=== PATIENT | male | born 1945 | race Caucasian/White ===

== ENCOUNTER → 2018-04-23 | Outpatient (CLI) | payer OTHER ==
[~2018-04-23] MED LIST: ADVIN25/60 INH; ASPI81TA28 PO; ATOR-24 PO; COLE3.75 PO; CZR50 PO; FINA5TAB PO; FLM4 PO; METO50TA16 PO
[2018-04-23 10:20] LABS: BASO % 0.9 %; BASO ABS # 0.06 K/uL (0-0.2); EOS % 4.4 %; EOS ABS # 0.29 K/uL (0-0.5); HEMATOCRIT 43.3 % (42-52); HEMOGLOBIN 14.4 g/dL (14.0-18.0); IG# 0.01 K/uL (0.00-0.02); LYMPH % 21.9 %; LYMPH ABS # 1.43 K/uL (1.2-3.4); MEAN CELL VOLUME 92.5 fL (80-100); MEAN CORPUSCULAR HEMOGLOBIN 30.8 pg (25-34); MEAN CORPUSCULAR HGB CONC 33.3 g/dl (32-36); MEAN PLATELET VOLUME 10.7 fL (7.4-10.4); MONO % 7.7 %; NEUT % 64.9 %; NEUT ABS # 4.24 K/uL (1.4-6.5); PLATELET COUNT 243 K/uL (130-400); RED CELL DISTRIBUTION WIDTH SD 43.3 fL (36.4-46.3); WHITE BLOOD COUNT 6.53 K/uL (4.8-10.8)
[2018-04-23 10:31] LABS: BLOOD UREA NITROGEN 17 mg/dl (7-18); CALCIUM 8.7 mg/dl (8.5-10.1); CARBON DIOXIDE 24 mmol/L (21-32); CREATININE 1.36 mg/dl (0.60-1.40); GLUCOSE 148 mg/dl (70-99); POTASSIUM 4.6 mmol/L (3.5-5.1); SODIUM 140 mmol/L (136-145)
== END | disposition home or self-care (01) ==
LOC: C.LAB 09:15
PROVIDERS: ATTEND Urology
DX: Z01.812 Encounter for preprocedural laboratory examination (principal)

== ENCOUNTER → 2018-04-29 | Outpatient (CLI) | payer OTHER ==
[~2018-04-29] MED LIST changes: +RIVA1TAB4 PO; +antibiotic PO
== END | disposition home or self-care (01) ==
LOC: C.LAB 14:35
PROVIDERS: ATTEND Urology
DX: N40.1 Benign prostatic hyperplasia with lower urinary tract symptoms (principal); R31.0 Gross hematuria; C67.9 Malignant neoplasm of bladder, unspecified

== ENCOUNTER 2018-05-05 06:42 | Day surgery (SDC) | payer OTHER ==
[2018-04-20 09:18] VITALS: BMI 36.0
[2018-04-23 09:29] VITALS: BMI 36.0
--- NOTE | 2018-04-23 09:45 | PAT Medication Instructions ---
Service Date Apr 23, 2018. Current Home Medication List Aspirin (Aspirin Ec), 81 MG PO QAM Atorvastatin (Lipitor), 40 MG PO QPM Colesevelam Hcl (Welchol), 1 PKT PO QAM Finasteride (Proscar), 5 MG PO QPM Fluticasone Prop/Salmeterol (Advair Diskus 250/50 60 Dose), 1 PUFF INH BID Losartan Potassium (Losartan Potassium), 1 TAB PO QAM Metoprolol Tartrate (Lopressor) (Lopressor), 50 MG PO QAM Tamsulosin HCl (Tamsulosin HCl), 1 TAB PO QPM Medication Instructions For Your Scheduled Surgery - Hold the following medications the morning of surgery: Colesevelam Hcl (Welchol), 1 PKT PO QAM Losartan Potassium (Losartan Potassium), 1 TAB PO QAM - Take the following medications the morning of surgery with a sip of water: Aspirin (Aspirin Ec), 81 MG PO QAM (OK per surgeon) Fluticasone Prop/Salmeterol (Advair Diskus 250/50 60 Dose), 1 PUFF INH BID Metoprolol Tartrate (Lopressor) (Lopressor), 50 MG PO QAM - Take the following medications as scheduled the night before surgery: Atorvastatin (Lipitor), 40 MG PO QPM Finasteride (Proscar), 5 MG PO QPM Fluticasone Prop/Salmeterol (Advair Diskus 250/50 60 Dose), 1 PUFF INH BID Tamsulosin HCl (Tamsulosin HCl), 1 TAB PO QPM If you have any questions please call us at [phone] or [phone] or [phone]
[~2018-05-05] VITALS: Ht 165.1 cm; Wt 98.6 kg
[~2018-05-05 06:42] MED LIST changes: +LACTATED RINGER'S 1000ML 1,000 ML IV SCH; -RIVA1TAB4 PO; -antibiotic PO
--- NOTE | 2018-05-05 07:13 | History & Physical Bridge Note ---
H&P Re-Evaluation Bridge Note: I have examined the patient, reviewed the History & Physical and in the interval since the performance of the History & Physical I have noted the following changes of clinical significance: No changes noted
[2018-05-05] MEDS ORDERED: antibiotic PO ×2 (07:26)
[2018-05-05 07:27] VITALS: BP 131/70; PULSE 66; TEMP 36.9; O2SAT 93; Ht 165.1 cm; Wt 98.6 kg
[2018-05-05] MEDS ORDERED: RIVA1TAB4 PO ×2 (07:41)
[2018-05-05] MEDS ORDERED: PROPOFOL IV EMULSION 10 MG/ML 20 ML VIAL ONE (07:42)
[2018-05-05] MEDS ORDERED: FENTANYL CITRATE INJ 50 MCG/1 ML 2 ML VIAL ONE ×2 (07:42→09:55)
[2018-05-05] MEDS ORDERED: LIDOCAINE HCL 2% 2 ML VIAL (20MG/ML) ONE (07:42)
[2018-05-05] MEDS ORDERED: ONDANSETRON INJ 2 MG/ML 2 ML VIAL ONE (07:42)
[2018-05-05] MEDS ORDERED: Cysto-Conray II 17.2% 250ML BOTTLE ONE (08:25)
[2018-05-05] MEDS ORDERED: MEPERIDINE HCL 25 MG/ML CARP IV PRN (08:30)
[2018-05-05] MEDS ORDERED: EpHEDrine SULFATE INJ 50 MG/ML AMP IV PRN (08:30)
[2018-05-05] MEDS ORDERED: ATROPINE SULFATE 0.1 MG/ML 5ML SYR IV PRN (08:30)
[2018-05-05] MEDS ORDERED: ONDANSETRON INJ 2 MG/ML 2 ML VIAL IV PRN (08:30)
[2018-05-05] MEDS ORDERED: FENTANYL CITRATE INJ 50 MCG/1 ML 2 ML VIAL IV PRN (08:30)
[2018-05-05] MEDS ORDERED: HYDROmorphone INJ 1 MG/ML SYR IV PRN (08:30)
[2018-05-05] MEDS ORDERED: LABETALOL HCL IV 5 MG/ML 20ML IV PRN (08:30)
[2018-05-05] MEDS: CIPROFLOXACIN / D5W 400 MG IV SCH ×2 (08:50→11:18)
[2018-05-05] MEDS ORDERED: MITOMYCIN FOR INJ 40 MG in SYRINGE 40 ML INSTIL SCH (09:00)
[2018-05-05] MEDS ORDERED: PHENYLEPHRINE 100MCG/ML 5ML SYR ONE (09:32)
--- NOTE | 2018-05-05 10:15 | [facility] Post Operative Brief Note ---
Immediate Operative Summary Operative Date May 05, 2018. Pre-Operative Diagnosis malignant neoplasm of bladder Post-Operative Diagnosis same as preop Procedure(s) Performed Cystoscopy, Small Transurethral Resection of Bladder Tumor With Multiple Cup Biopsies of the Bladder, Mitomycin C, and Right Retrograde Surgeon Dr. Jair Campbell Eyeglass Frame Truer Surgeon(s) None Estimated Blood Loss 20ml Findings Consistent with Post-Op Diagnosis Specimens Permanent Specimen: A.) Tumor Next to Right Ureteral Orifice B.) Biopsy Right Lateral Wall Bladder C.) Biopsy Right Bladder Neck D.) Posterior Wall Bladder Drains 18 pink with mitomycin Anesthesia Type General
--- NOTE | 2018-05-05 10:20 | Discharge Instructions ---
Discharge Instructions Date of Service May 05, 2018. Visit Reason for Visit: Malignant Neoplasm Of Bladder Discharge Discharge Diagnosis / Problem: post op small turbt and r retrograde Discharge Goals Goal(s): Increase independence, Improve disease control, Diagnostic testing Activity Recommendations Activity Limitations: per Instructions/Follow-up section (restart xaralto in 72 hours if no blood seen for 24 hours) Exercise/Sports Limitations: as tolerated Driving or Machine Use: resume 1 day after discharge Anesthesia . Post Anesthesia Instructions: If you have had General Anesthesia or IV Sedation: * Do not drive today. * Resume driving when surgeon permits. * Do not make important decisions or sign legal documents today. * Call surgeon for: 1. Temperature elevations greater than 101 degrees F. 2. Uncontrollable pain. 3. Excessive bleeding. 4. Persistent nausea and vomiting. 5. Medication intolerance (nausea, vomiting or rash). * For nausea and vomiting use only clear liquids such as: tea, soda, bouillon until nausea subsides, then gradually increase diet as tolerated. * If you have any concerns or questions, call your surgeon's office. If physician is unavailable and it is an emergency, call 911 or go to the nearest emergency room. . Diet Recommendations Recommended Home Diet: resume previous diet Procedures Procedures Performed: Cystoscopy, Small Transurethral Resection of Bladder Tumor With Multiple Cup Biopsies of the Bladder, Mitomycin C, and Right Retrograde Pending Studies Studies pending at discharge: no Medical Emergencies . Who to Call and When: Medical Emergencies: If at any time you feel your situation is an emergency, please call 911 immediately. . Non-Emergent Contact Non-Emergency issues call your: Urologist Call Non-Emergent contact if: temperature is above 100.5, your pain is worsening, you have any medication questions . . "Provider Documentation" section prepared by Jair Campbell. .
--- NOTE | 2018-05-05 10:37 | DIAGNOSTIC IMAGING REPORT ---
RETROGRADE INCLUDES KUB CLINICAL HISTORY: Right retrograde exam. COMPARISON STUDY: CT of the abdomen and pelvis April 14, 2018. Fluoroscopy time: 25 seconds. FINDINGS: 8 fluoroscopic images from right retrograde exam were submitted for interpretation. There is no right hydronephrosis or hydroureter. No right-sided upper tract filling defect is noted. IMPRESSION: Fluoroscopic images from right retrograde exam. Electronically signed by: Uli Zhang M.D. 05/05/2018 10:35 AM Dictated Date/Time: 05/05/2018 10:30 AM
[2018-05-05 10:55] VITALS: BP 141/87; PULSE 83; TEMP 36.4; O2SAT 97
--- NOTE | 2018-05-05 11:11 | Anesthesiology Progress Note ---
Anesthesia Post Op Note Date & Time May 05, 2018 at 11:10 Vital Signs Pain Intensity: 0 Vital Signs Past 12 Hours Date Time Temp Pulse Resp B/P (MAP) Pulse Ox O2 Delivery O2 Flow Rate FiO2 05/05/18 10:43 36.6 97 Room Air 05/05/18 10:43 88 17 05/05/18 10:43 87 17 97 05/05/18 10:41 142/89 05/05/18 10:38 89 16 05/05/18 10:38 89 16 98 05/05/18 10:37 89 14 05/05/18 10:37 89 14 96 05/05/18 10:36 155/92 05/05/18 10:32 91 13 98 05/05/18 10:32 91 13 05/05/18 10:31 157/97 05/05/18 10:30 91 16 05/05/18 10:30 92 16 92 05/05/18 10:27 162/98 05/05/18 10:25 93 13 05/05/18 10:25 93 13 93 05/05/18 10:21 153/97 05/05/18 10:20 94 14 05/05/18 10:20 94 14 92 05/05/18 10:16 148/96 05/05/18 10:15 95 16 05/05/18 10:15 95 16 95 05/05/18 10:11 158/100 05/05/18 10:10 37.2 97 16 158/100 96 Oxymask 10 05/05/18 10:10 99 05/05/18 10:10 99 96 05/05/18 07:27 36.9 66 20 131/70 (90) 93 Room Air Notes Mental Status: alert / awake / arousable, participated in evaluation Pt Amnestic to Procedure: Yes Nausea / Vomiting: adequately controlled Pain: adequately controlled Airway Patency, RR, SpO2: stable & adequate BP & HR: stable & adequate Hydration State: stable & adequate Anesthetic Complications: no major complications apparent
[2018-05-05 11:20] VITALS: BP 144/89; PULSE 72; O2SAT 98
[2018-05-05 11:55] VITALS: BP 130/92; PULSE 63; TEMP 36.3; O2SAT 97
[2018-05-05 12:55] VITALS: BP 158/95; PULSE 60; TEMP 36.3; O2SAT 97
--- NOTE | 2018-05-05 13:44 | OPERATIVE REPORT ---
DATE OF OPERATION: 05/05/2018 PROCEDURE PERFORMED: Cystoscopy and small TURBT, and right retrograde. HISTORY OF PRESENTATION: The patient is a 72-year-old male with a history of gross hematuria who on cystoscopy in the office had multiple small bladder tumors mostly on the right side of the bladder and some right around the ureteral orifice which may be concerned that there could be something in the right ureter. For this reason, consented him to do the cysto, possible stent placement and retrograde. DESCRIPTION OF THE PROCEDURE: The patient was taken to the operating room where general anesthesia was administered. He had Venodyne stockings placed and was given preoperative antibiotics. He was placed in dorsal lithotomy position and prepped and draped in usual sterile fashion. A 21-Divehi cystoscope was passed per urethra. The patient had a moderately obstructing prostate, but no urethral strictures were noted. Once inside the bladder, the bladder was examined with the 30 and 70-degree lens. There were some fine mostly small papillary tumors that were seen around the right ureteral orifice and anterior and lateral and posterior to the right ureter. There was also on the posterior wall a small cellule with papillary changes. These areas were biopsied and fulgurated widely. The area around the ureteral orifice was fulgurated very carefully and retrograde was performed prior to this fulguration. No definite obstruction or filling defects were seen. At the end of the procedure, there is no evidence of active bleeding. The patient had a Carr catheter placed and mitomycin was given and he was transferred to the recovery room in stable condition. I attest to the content of the Intraoperative Record and any orders documented therein. Any exception s are noted below.
== END 2018-05-05 13:14 | disposition home or self-care (01) ==
LOC: C.ACU 06:42
PROVIDERS: ATTEND Urology
DX: C67.9 Malignant neoplasm of bladder, unspecified (principal); N30.80 Other cystitis without hematuria; I25.10 Atherosclerotic heart disease of native coronary artery without angina pectoris; J45.909 Unspecified asthma, uncomplicated; I10 Essential (primary) hypertension; I48.91 Unspecified atrial fibrillation; M19.90 Unspecified osteoarthritis, unspecified site; K44.9 Diaphragmatic hernia without obstruction or gangrene; N40.1 Benign prostatic hyperplasia with lower urinary tract symptoms; N13.8 Other obstructive and reflux uropathy; E66.9 Obesity, unspecified; Z68.36 Body mass index [BMI] 36.0-36.9, adult; Z87.442 Personal history of urinary calculi; Z96.659 Presence of unspecified artificial knee joint

== ENCOUNTER 2024-11-01 10:05 | Inpatient (IN) ==
--- NOTE | 2024-11-01 10:16 | Emergency Department Note ---
Impression & Plan Fracture of proximal end of right femur, Fall from standing ED Provider Note HISTORY OF PRESENT ILLNESS: Patient is a 79-year-old male presenting with right hip pain after a fall. Patient was taking his trash out to the bottom of his driveway when he slipped on a patch of ice and fell, landing on his right hip. Reports immediate pain and deformity to the right hip and was unable to get up on his own. His neighbor saw him and called for help. Patient denies any chest pain, shortness of breath or lightheadedness prior to his fall. He reports he just slipped on the ice. He denies striking his head or loss of consciousness. He is on Xarelto daily - last dose was yesterday evening. Unknown tetanus. He is currently complaining of 10 out of 10 pain in his right hip. He was given 100 mcg IV fentanyl prehospital with EMS. ROS: as above PHYSICAL EXAM: Vitals: See nursing chart. Constitutional: GCS 15. HENT: Head: No external signs of trauma. Mouth/Throat: Midface stable. No malocclusion. Eyes: EOMI. Pupils are 2 mm, round and reactive bilaterally. Nose: No nasal septal hematoma. No gross deformity. Neck: No midline C-spine tenderness. No step-offs. Cardiovascular: Irregular rhythm. Pulses present in all 4 extremities. Pulmonary/Chest: BS equal bilaterally. No tenderness or ecchymosis. Abdomen: No tenderness or ecchymosis. Musculoskeletal: Pelvis: No instability. Patient does have tenderness to palpation over the proximal lateral right femur. Unable to internally or externally rotate the femur without pain. Back: No midline tenderness. No step-offs. Extremities: No gross deformities. TTP. Skin: No laceration. Abrasion to right elbow Neuro: No focal neurological deficits. GCS as above. Psych: Normal mood and affect. MDM: - Vitals signs showed hypertension and tachycardia. ABCs intact. - History obtained via patient. History as above. - Chronic conditions affecting care: HTN; HLD; bladder cancer; Afib - Differential diagnoses include, but are not limited to: intracranial hemorrhage; pelvic fracture; femur fracture; femur dislocation; contusion - Order placed for continuous cardiac monitoring. At this time, monitor showed rate of 87 bpm with irregular rhythm, per my interpretation. - External medical records reviewed. - EKG interpreted by myself showed atrial fibrillation. Rate 91 bpm. QT 400. No acute ischemic changes. Noted have an incomplete right bundle branch block. - Laboratory workup interpreted by myself showed normal WBC; normal electrolytes; elevated creatinine (Cr 1.54 - last Cr in our system in 2018 was 1.36); normal troponin; normal lipase - CXR negative for pneumonia or pneumothorax, per my interpretation - Xray pelvis with R hip showed proximal right femur fracture, per my interpretation. - UA negative for infection - Type and screen ordered - Patient initially given 0.5 mg IV dilaudid on arrival. After being repositioned for multiple imaging studies, the patient was complaining of worsening pain. Given additional 0.5 mg IV Dilaudid and 1 g IV Tylenol. - CT head wo contrast negative for acute pathology - CT cervical spine wo contrast negative for acute injury - Attempted to reach out to orthopedist rehabilitation aide, Dr. Bernstein, at 10:48 AM. However, he apparently is in the operating room and did not answer the [facility] message. The secretary board of commissioners reach out to orthopedics multiple times, as need to confirm surgical planning before being admitted to hospitalist service. - Discussed case with hospitalist, Dr. Ruiz, at 12:48. He was willing to accept the patient to his service, but wanted confirmation from orthopedics that they would operate on this prior to admission orders being placed. - Dr. Bernstein finally returned page at 1300 and reports that patient should be admitted to hospitalist service and orthopedics will be on for consult service. - Discussion was had with continuous pillowcase cutter about patient's case and need for admission - Patient admitted to [facility] hospitalist service for further evaluation and management. 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 History of bladder cancer Medical History (Updated 11/01/24 @ 12:54 by Abimbola De La Fuente MD) Calculus of kidney and ureter Gross hematuria Hydrocele Nocturia UTI (urinary tract infection) Surgical History (Updated 06/27/20 @ 13:16 by Jasmin House RN) H/O vasectomy H/O shoulder surgery History of knee replacement Hx of colonoscopy H/O hernia repair H/O heart surgery Family History (Updated 06/27/20 @ 13:17 by Jasmin House RN) Father Heart disease Mother Diabetes Hypertension Skin cancer Social History (Updated 12/25/20 @ 12:06 by Igor Marquez) Smoking Status: Never smoker Hx Alcohol Use: Yes marital status: current occupational status: retired Feels Safe at Home: Yes Allergies Allergies Allergy/AdvReac Type Severity Reaction Status Date / Time No Known Drug Allergies Allergy Unknown . Verified 07/12/24 10:18 Home Meds Home Medications Medication Instructions Recorded Confirmed tamsulosin 0.4 mg capsule 0.4 mg PO DAILY 05/24/19 07/12/24 Xarelto 11/01/24 amiodarone 11/01/24 atorvastatin 11/01/24 colesevelam 3.75 gram oral powder 11/01/24 packet (WelChol) fluticasone 250 mcg-salmeterol 50 inhalation 11/01/24 mcg/dose blistr powdr for inhalation (Advair Diskus) metoprolol tartrate 11/01/24 Previous Rx's Medication Instructions Recorded finasteride 5 mg tablet 5 mg PO DAILY #90 tabs 10/11/24 Results & Data (ED) Vital Signs Vital Signs - 24 hr 11/01/24 10:08 11/01/24 10:09 11/01/24 10:09 Temperature 36.7 C 36.7 C Temperature Source Oral Pulse Rate 104 H 96 H Pulse Rate [Apical] 103 H Respiratory Rate 19 16 16 Respiratory Effort / Characteristics Non-Labored Spontaneous Non-Labored Spontaneous Respiratory Depth Normal Respiratory Pattern Blood Pressure 142/93 H 142/93 H Blood Pressure [Right Arm] Blood Pressure Mean 109 Blood Pressure Mean [Right Arm] Blood Pressure Position Lying Pulse Oximetry 96 94 96 Oxygen Delivery Method Room Air Nasal Cannula Nasal Cannula Oxygen Flow Rate 2 2 Fraction of Inspired Oxygen 21 Sepsis Recent Fever Within 48 Hours No Sepsis New/Unexplained Change in Mental Status N/A Sepsis Action Taken by Nursing No Action Required 11/01/24 10:14 11/01/24 10:21 11/01/24 10:45 Temperature Temperature Source Pulse Rate 103 H 84 94 H Pulse Rate [Apical] Respiratory Rate 18 20 Respiratory Effort / Characteristics Respiratory Depth Respiratory Pattern Blood Pressure 142/93 H 130/94 Blood Pressure [Right Arm] Blood Pressure Mean 109 106 Blood Pressure Mean [Right Arm] Blood Pressure Position Pulse Oximetry 98 93 Oxygen Delivery Method Room Air Room Air Oxygen Flow Rate Fraction of Inspired Oxygen Sepsis Recent Fever Within 48 Hours Sepsis New/Unexplained Change in Mental Status Sepsis Action Taken by Nursing 11/01/24 11:02 11/01/24 11:04 11/01/24 11:32 Temperature Temperature Source Pulse Rate Pulse Rate [Apical] 97 H Respiratory Rate 24 Respiratory Effort / Characteristics Non-Labored Spontaneous Respiratory Depth Normal Respiratory Pattern Regular Blood Pressure 135/92 Blood Pressure [Right Arm] 100/80 Blood Pressure Mean 97 Blood Pressure Mean [Right Arm] 86 Blood Pressure Position Pulse Oximetry 97 97 Oxygen Delivery Method Nasal Cannula Nasal Cannula Oxygen Flow Rate 2 2 Fraction of Inspired Oxygen Sepsis Recent Fever Within 48 Hours Sepsis New/Unexplained Change in Mental Status Sepsis Action Taken by Nursing 11/01/24 11:33 11/01/24 11:39 Temperature Temperature Source Pulse Rate 87 Pulse Rate [Apical] 88 Respiratory Rate 16 16 Respiratory Effort / Characteristics Non-Labored Spontaneous Respiratory Depth Normal Respiratory Pattern Regular Blood Pressure Blood Pressure [Right Arm] 135/92 Blood Pressure Mean Blood Pressure Mean [Right Arm] 106 Blood Pressure Position Pulse Oximetry 95 99 Oxygen Delivery Method Nasal Cannula Nasal Cannula Oxygen Flow Rate 2 2 Fraction of Inspired Oxygen Sepsis Recent Fever Within 48 Hours Sepsis New/Unexplained Change in Mental Status Sepsis Action Taken by Nursing Laboratory Data 11/01/24 10:12 11/01/24 10:12 Lab Results 11/01/24 11/01/24 11/01/24 Range/Units 10:12 10:18 12:10 WBC 9.33 (4.8-10.8) K/ul RBC 4.17 L (4.70-6.10) M/uL Hgb 10.8 L (14.0-18.0) g/dl POC Hgb 11.6 L (14.0-18.0) g/dl Hct 34.8 L (42.0-52.0) % POC Hct 34 L (42-52) % MCV 83.5 (80.0-100.0) fL MCH 25.9 (25.0-34.0) pg MCHC 31.0 L (32.0-36.0) g/dL RDW Std Deviation 43.2 (36.4-46.3) fL RDW Coeff of Kelvin 14.3 (11.5-14.5) % Plt Count 335 (130-400) K/uL MPV 9.2 L (9.4-12.4) fL Immature Gran % (Auto) 0.4 % Neut % (Auto) 66.8 % Lymph % (Auto) 17.9 % [place] % (Auto) 11.9 % Eos % (Auto) 2.6 % Baso % (Auto) 0.4 % Neut # (Auto) 6.23 (1.40-6.50) K/uL Lymph # (Auto) 1.67 (1.20-3.40) K/uL [place] # (Auto) 1.11 H (0.11-0.59) K/uL Eos # (Auto) 0.24 (0.00-0.50) K/uL Baso # (Auto) 0.04 (0.00-0.20) K/uL Immature Gran # (Auto) 0.04 (0.01-0.20) K/uL PT 12.4 H (9.0-12.0) Seconds INR 1.2 H (0.9-1.1) APTT 29 (21-31) Seconds PTT Ratio 1.1 POC Sodium 139 (135-144) mmol/L Sodium 138 (136-145) mmol/L POC Potassium 4.8 (3.3-5.0) mmol/L Potassium 4.7 (3.5-5.1) mmol/L POC Chloride 108 (101-112) mmol/L Chloride 108 H (98-107) mmol/L Carbon Dioxide 25 (21-32) mmol/L POC Total CO2 25 (24-31) mmol/L Anion Gap 5 (3-11) POC Anion Gap 12.0 L (16-25) mmol/L POC BUN 23 H (7-18) mg/dl BUN 24 H (6-23) mg/dl Creatinine 1.54 H (0.6-1.4) mg/dl POC Creatinine 1.7 H (0.6-1.3) mg/dl Est Cr Clr Drug Dosing 44.8 ml/min eGFR 45.89 BUN/Creatinine Ratio 15.6 (10-20) Glucose 144 H (70-99(Fasting)) mg/dl POC Glucose (other) 144 H (70-99) mg/dl Calcium 8.4 L (8.6-10.3) mg/dl POC Ioniz Calcium Emile 1.18 (1.12-1.32) mmol/l Total Bilirubin 0.7 (0.2-1.0) mg/dl AST 14 (13-39) U/L ALT 13 (7-52) U/L Alkaline Phosphatase 91 (34-104) U/L Troponin I High Sens 4.8 (0-20) pg/ml Total Protein 7.0 (6.0-8.3) gm/dl Albumin 3.9 (3.4-5.0) gm/dl Globulin 3.1 (2.5-4.0) gm/dl Albumin/Globulin Ratio 1.3 (0.9-2) Lipase 31 (11-82) U/L Urine Color Yellow Urine Appearance Clear (Clear) Urine pH 5.0 (4.5-7.5) Ur Specific Baker 1.015 (1.000-1.030) Urine Protein Negative (Negative) Urine Glucose (UA) Negative (Negative) Urine Ketones Negative (Negative) Urine Blood Negative (Negative) Urine Nitrite Negative (Negative) Urine Bilirubin Negative (Negative) Urine Urobilinogen Negative (Negative) Ur Leukocyte Esterase Negative (Negative) Blood Type AB Positive Antibody Screen NEGATIVE Administered Medications Discontinued Medications Hydromorphone HCl (Hydromorphone Inj 0.5 Mg/0.5 Ml Syr) 0.5 mg IV NOW STA Stop: 11/01/24 10:13 Last Admin: 11/01/24 10:20 Dose: 0.5 mg Documented By: KAITLIN Hydromorphone HCl (Hydromorphone Inj 0.5 Mg/0.5 Ml Syr) 0.5 mg IV NOW STA Stop: 11/01/24 10:50 Last Admin: 11/01/24 11:05 Dose: 0.5 mg Documented By: CHIARA Acetaminophen (irmev) 1,000 mg in 100 mls @ 400 mls/hr IV NOW STA Stop: 11/01/24 11:32 Last Infusion: 11/01/24 12:00 Dose: Infused Documented By: Admin: 11/01/24 11:29 Dose: 400 mls/hr Documented By: NRB Imaging Data Radiologist's Impression: Hip/Pelvis X-Ray 11/01/24 10:12 XR hip RT 2V w pelvis CLINICAL HISTORY: R hip pain s/p fall COMPARISON: None FINDINGS: There is an acute mildly comminuted mildly displaced fracture at the proximal right femur. The main fracture lucency extends from the lesser trochanter inferiorly and laterally. Another portion of the fracture extends superiorly to the greater trochanter. There is one half shaft width medial displacement and mild angulation. IMPRESSION: Acute proximal right femur fracture. ACT 112: Negative or not required by law. Electronically signed by: Giles Caballero M.D. 11/01/2024 10:[address] 11/01/24 10:13 CT OF THE CERVICAL SPINE WITHOUT CONTRAST CLINICAL HISTORY: Trauma COMPARISON STUDY: No previous studies for comparison. TECHNIQUE: Helical axial images of the cervical spine were obtained without IV contrast. Sagittal and coronal reconstructions were viewed. Automated exposure control was utilized for the study. A dose lowering technique was utilized adhering to the principles of ALARA. FINDINGS: This study is mildly compromised by artifact. No cervical spine fractures are identified. There is reversal of the cervical lordosis. There is moderate degenerative disc disease with disc space narrowing and endplate osteophytosis. There is severe multilevel facet arthrosis. There is no prevertebral edema. IMPRESSION: 1. No acute cervical spine fracture or subluxation. Exam mildly compromised by motion artifact. 2. Moderate degenerative disc disease and severe facet arthrosis within the cervical spine. ACT 112: Negative or not required by law. Electronically signed by: Uli Zhang M.D. 11/01/2024 10:57 AM Chest X-Ray 11/01/24 10:13 XR chest 1V portable CLINICAL HISTORY: Trauma COMPARISON STUDY: 06/04/2024 FINDINGS: Stable cardiomegaly with mild pulmonary vascular congestion. Inspiration is shallow. No effusion, consolidation, or pneumothorax. No grossly displaced rib fracture seen. Bilateral shoulder prostheses are stable. IMPRESSION: No acute findings seen. ACT 112: Negative or not required by law. Electronically signed by: Giles Caballero M.D. 11/01/2024 10:[address] 11/01/24 10:13 CT head/brain wo con CLINICAL HISTORY: Trauma. TECHNIQUE: Multiple axial CT images of the head were obtained without contrast. A dose lowering technique was utilized adhering to the principles of ALARA. CT DOSE: 1235 COMPARISON: None FINDINGS: No intracranial hemorrhage seen. No mass effect, midline shift, or hydrocephalus. There is mild chronic small vessel ischemic change. No skull fracture seen. Visualized paranasal sinuses and mastoid air cells are clear. IMPRESSION: No acute findings. ACT 112: Negative or not required by law. The above report was generated using voice recognition software. It may contain grammatical, syntax or spelling errors. Electronically signed by: Giles Caballero M.D. 11/01/2024 10:48 AM Discharge Plan Visit Data Chief Complaint: Trauma ED Provider: Abimbola De La Fuente Discharge Problem: Fracture of proximal end of right femur, Fall from standing Forms Stand Alone Forms: On License Of [facility] Prescriptions Prescriptions: No Action tamsulosin 0.4 mg capsule 0.4 mg PO DAILY finasteride 5 mg tablet 5 mg PO DAILY Qty: 90 1RF fluticasone propion-salmeterol [Advair Diskus] 250-50 mcg/dose Blister With Device INHALATION colesevelam [WelChol] 3.75 gram Powder In Packet Xarelto amiodarone atorvastatin metoprolol tartrate Referrals Referrals: Jimmy Paul MD [Primary Care Provider] -
[2024-11-01] MEDS: HYDROmorphone INJ 0.5 MG/0.5 ML SYR IV STA ×2 (10:20→11:05)
[2024-11-01 10:30] LABS: iSTAT Creatinine 1.7 mg/dl (0.6-1.3); iSTAT Hemoglobin 11.6 g/dl (14.0-18.0); iSTAT Ionized Calcium 1.18 mmol/l (1.12-1.32); iSTAT Potassium 4.8 mmol/L (3.3-5.0)
[2024-11-01 10:45] LABS: Basophils # (auto) 0.04 K/uL (0.00-0.20); Basophils % (auto) 0.4 %; Eosinophils # (auto) 0.24 K/uL (0.00-0.50); Eosinophils % (auto) 2.6 %; Hematocrit (blood only) 34.8 % (42.0-52.0); Hemoglobin 10.8 g/dl (14.0-18.0); Immature Granulocytes # (auto) 0.04 K/uL (0.01-0.20); Immature Granulocytes % (auto) 0.4 %; Lymphocytes # (auto) 1.67 K/uL (1.20-3.40); Lymphocytes % (auto) 17.9 %; Mean Corpuscular Hemoglobin 25.9 pg (25.0-34.0); Mean Corpuscular Volume 83.5 fL (80.0-100.0); Mean Platelet Volume 9.2 fL (9.4-12.4); Monocytes # (auto) 1.11 K/uL (0.11-0.59); Monocytes % (auto) 11.9 %; Neutrophils # (auto) 6.23 K/uL (1.40-6.50); Neutrophils % (auto) 66.8 %; Platelet Count 335 K/uL (130-400); RDW Coefficient of Variation 14.3 % (11.5-14.5); RDW Standard Deviation 43.2 fL (36.4-46.3); Red Blood Count 4.17 M/uL (4.70-6.10); White Blood Count 9.33 K/ul (4.8-10.8)
--- NOTE | 2024-11-01 10:50 | XRay Report ---
XR chest 1V portable CLINICAL HISTORY: Trauma COMPARISON STUDY: 06/04/2024 FINDINGS: Stable cardiomegaly with mild pulmonary vascular congestion. Inspiration is shallow. No eff usion, consolidation, or pneumothorax. No grossly displaced rib fracture seen. Bilateral shoulder pro stheses are stable. IMPRESSION: No acute findings seen. ACT 112: Negative or not required by law. Electronically signed by: Giles Caballero M.D. 11/01/2024 10:49 AM
--- NOTE | 2024-11-01 10:50 | CT Scan Report ---
CT head/brain wo con CLINICAL HISTORY: Trauma. TECHNIQUE: Multiple axial CT images of the head were obtained without contrast. A dose lowering tech nique was utilized adhering to the principles of ALARA. CT DOSE: 1235 COMPARISON: None FINDINGS: No intracranial hemorrhage seen. No mass effect, midline shift, or hydrocephalus. There is mild chronic small vessel ischemic change. No skull fracture seen. Visualized paranasal sinuses and m astoid air cells are clear. IMPRESSION: No acute findings. ACT 112: Negative or not required by law. The above report was generated using voice recognition software. It may contain grammatical, syntax o r spelling errors. Electronically signed by: Giles Caballero M.D. 11/01/2024 10:48 AM
--- NOTE | 2024-11-01 10:52 | XRay Report ---
XR hip RT 2V w pelvis CLINICAL HISTORY: R hip pain s/p fall COMPARISON: None FINDINGS: There is an acute mildly comminuted mildly displaced fracture at the proximal right femur. The main fracture lucency extends from the lesser trochanter inferiorly and laterally. Another porti on of the fracture extends superiorly to the greater trochanter. There is one half shaft width medial displacement and mild angulation. IMPRESSION: Acute proximal right femur fracture. ACT 112: Negative or not required by law. Electronically signed by: Giles Caballero M.D. 11/01/2024 10:51 AM
[2024-11-01 10:55] LABS: Albumin Globulin Ratio 1.3 (0.9-2); Albumin Level 3.9 gm/dl (3.4-5.0); BUN Creatinine Ratio 15.6 (10-20); Bilirubin,Total 0.7 mg/dl (0.2-1.0); Calcium 8.4 mg/dl (8.6-10.3); Creatinine Clr Calc Pharmacy 44.8 ml/min; Globulin 3.1 gm/dl (2.5-4.0); Potassium 4.7 mmol/L (3.5-5.1)
[2024-11-01 10:58] LABS: Troponin I High Sensitivity 4.8 pg/ml (0-20)
--- NOTE | 2024-11-01 10:59 | CT Scan Report ---
CT OF THE CERVICAL SPINE WITHOUT CONTRAST CLINICAL HISTORY: Trauma COMPARISON STUDY: No previous studies for comparison. TECHNIQUE: Helical axial images of the cervical spine were obtained without IV contrast. Sagittal a nd coronal reconstructions were viewed. Automated exposure control was utilized for the study. A do se lowering technique was utilized adhering to the principles of ALARA. FINDINGS: This study is mildly compromised by artifact. No cervical spine fractures are identified. T here is reversal of the cervical lordosis. There is moderate degenerative disc disease with disc spac e narrowing and endplate osteophytosis. There is severe multilevel facet arthrosis. There is no preve rtebral edema. IMPRESSION: 1. No acute cervical spine fracture or subluxation. Exam mildly compromised by motion artifact. 2. Moderate degenerative disc disease and severe facet arthrosis within the cervical spine. ACT 112: Negative or not required by law. Electronically signed by: Uli Zhang M.D. 11/01/2024 10:57 AM
[2024-11-01 11:01] LABS: INR 1.2 (0.9-1.1); Partial Thromboplastin Ratio 1.1; Partial Thromboplastin Time 29 Seconds (21-31); Prothrombin Time 12.4 Seconds (9.0-12.0)
[2024-11-01] MEDS: ACETAMINOPHEN 1,000 MG/100 ML VIAL IV STA (11:29)
[2024-11-01 12:39] LABS: Appearance Urine Clear (Clear); Bilirubin Urine Negative (Negative); Blood Urine Negative (Negative); Color Urine Yellow; Glucose Urine UA Negative (Negative); Ketones Urine Negative (Negative); Leukocyte Esterase Urine Negative (Negative); Nitrite Urine Negative (Negative); Protein Urine Negative (Negative); Specific Gravity Urine 1.015 (1.000-1.030); Urobilinogen Urine Negative (Negative)
--- NOTE | 2024-11-01 13:32 | History & Physical Report ---
Date of Service November 01, 2024 Assessment & Plan (1) Right femoral fracture: (2) Atrial fibrillation: (3) Anemia: Plan Jair is a 79-year-old male with PMH of bladder cancer, CKD stage III, BPH, HTN, hypercholesteremia, arthritis, and nephrolithiasis. Patient presented via EMS on 11/01 after slipping on snow at home while taking out the garbage. Patient reports that his driveway steep, and he was taking out the garbage this morning, when he slipped and his legs went out from under him. He believes he did hit his head, and landed on his right side. Patient takes Xarelto at suppertime for his atrial fibrillation, and took it the evening of 10/31. #Acute proximal right femur fracture Noted on hip/pelvic x-ray on arrival Activity: Bedrest Revised cardiac risk index: 0 Orthopedics consult appreciated Will plan on OR for 2/4 N.p.o. at midnight IV acetaminophen and Dilaudid as needed for pain Continuous pulse oximetry IV antiemetics as needed IVF maintenance with NSS at 80mL/hr x 24h #Atrial fibrillation Head strike on Xarelto; trauma alert in the ED; head CT revealed no acute findings on arrival Hold Xarelto in the setting of acute trauma Continue metoprolol #Anemia Hgb 10.8 on arrival Last Hgb on record was from 2017 MCV WNL at 83; ?anemia of chronic disease Fe panel, ferritin ordered, pending No signs of active bleeding (no hematoma or bruising) appreciated on clinical exam However, will continue to trend H&H q4h for now #CKD stage III Chronic; noted Trend kidney function Disposition: Admit to PCU telemetry Full code Regular diet, n.p.o. at midnight VTE PPx: Hold Xarelto; SCDs History of Present Illness Chief Complaint: Trauma, right hip pain Primary Care Provider: Jimmy Paul MD Jair is a pleasant 79-year-old gentleman with PMH of bladder cancer, CKD stage III, BPH, HTN, hypercholesteremia, arthritis, and nephrolithiasis. Patient presented via EMS on 11/01 after slipping on snow at home while taking out the garbage. Patient reports that his driveway steep, and he was taking out the garbage this morning, when he slipped and his legs went out from under him. He believes he did hit his head, and landed on his right side. Patient takes Xarelto at suppertime for his atrial fibrillation, and took it last night. He also reports that he took his regular morning medicine today. He rates his right hip/thigh pain as an 8/10 at present, and a 10/10 at worst. The pain is constant, and radiates down to his knee, but no further. He did not take any pain medicine prior to coming into the hospital. No LOC after slipping. No dizziness, lightheadedness, or presyncopal symptoms prior to fall. He was unable to bear weight after the fall, and reports that movement of the right lower extremity exacerbates his pain. Patient does have history of bilateral knee replacements and shoulder placements. He reports he did eat breakfast this morning (apple juice) around 7:30 AM. He denies PMH of stroke, AR, CHF, or T2DM. Patient denies smoking, tobacco use, or recent alcohol use. He does not use up on oxygen at baseline or CPAP at night. No PMH of DVT/PE. Patient's SpO2 is 99% on 2L NC; vitals otherwise stable at time of admission. ED course: Dilaudid 0.5 mg IV x 2 Acetaminophen 1000 mg IV ROS: Patient endorses severe right hip/thigh pain and chronic dry cough. Patient denies fever, dizziness/lightheadedness prior to fall, chest pain, chest palpitations, SOB, pleuritic CP, abdominal pain, N/V/D, changes in urinary or bowel habits, or numbness or tingling going down the right leg. Allergies Allergy/AdvReac Type Severity Reaction Status Date / Time No Known Drug Allergies Allergy Unknown . Verified 07/12/24 10:18 Home Medications Medication Instructions Recorded Confirmed Type tamsulosin 0.4 mg capsule 0.4 mg PO DAILY 05/24/19 11/01/24 History finasteride 5 mg tablet 5 mg PO DAILY #90 tabs 10/11/24 11/01/24 Rx Xarelto 15 mg PO DAILY 11/01/24 11/01/24 History amiodarone 200 mg PO .3X WEEK 11/01/24 11/01/24 History atorvastatin 40 mg PO DAILY 11/01/24 11/01/24 History colesevelam 3.75 gram oral powder 3.75 g PO QAM 11/01/24 11/01/24 History packet (WelChol) famotidine 40 mg tablet 40 mg PO BID 11/01/24 11/01/24 History fluticasone 250 mcg-salmeterol 50 1 inh inhalation BID 11/01/24 11/01/24 History mcg/dose blistr powdr for inhalation (Advair Diskus) furosemide 40 mg tablet 40 mg PO DAILY 11/01/24 11/01/24 History metoprolol tartrate 25 mg PO BID 11/01/24 11/01/24 History Past Med/Surg History Problem List (Updated 11/01/24 @ 14:14 by Valerio Diaz PA-C) Anemia Atrial fibrillation Right femoral fracture Fall from standing (Acute) Fracture of proximal end of right femur (Acute) Hydronephrosis, left Left ureteral stone Calcium nephrolithiasis Arthritis (Acute) Hypercholesterolemia (Acute) Hypertension (Acute) Papillary transitional cell carcinoma of bladder (Acute) Recurrent bladder transitional cell carcinoma (Acute) BPH with obstruction/lower urinary tract symptoms History of bladder cancer Medical History (Updated 11/01/24 @ 14:14 by Valerio Diaz PA-C) Calculus of kidney and ureter Gross hematuria Hydrocele Nocturia UTI (urinary tract infection) Surgical History (Updated 06/27/20 @ 13:16 by Jasmin House RN) H/O vasectomy H/O shoulder surgery History of knee replacement Hx of colonoscopy H/O hernia repair H/O heart surgery Family History (Updated 06/27/20 @ 13:17 by Jasmin House RN) Father Heart disease Mother Diabetes Hypertension Skin cancer Social History (Updated 12/25/20 @ 12:06 by Igor Marquez) Smoking Status: Never smoker Hx Alcohol Use: Yes marital status: current occupational status: retired Feels Safe at Home: Yes Review of Systems Review of Systems: See HPI above Physical Exam Physical Exam: General: Moderate physical distress secondary to right hip/thigh pain; family bedside; non-toxic appearing; well-nourished; cooperative; SpO2 99% on 2L NC HEENT: ? May be a slight superficial bruising on the right upper forehead; otherwise unremarkable; normocephalic; no scleral icterus; PERRLA; vision intact; hard of hearing Neck: supple; trachea midline Skin: warm, dry without signs of tenting; no cyanosis; no rashes, bruising, lesions, or erythema noted CV: chest wall NTP; irregularly irregular rhythm; S1/S2 normal; no murmurs/rubs/gallops; pulses intact and symmetric at radial, DP, and PT Lungs: no acute respiratory distress; symmetrical chest wall expansion; clear breath sounds across all lung luu w/o adventitious sounds; no wheezing ABD: Soft, NTP; BS present; no rebound/guarding; no distention RLE: Right lower extremity is externally rotated and shortened; right hip and thigh are TTP; no bruising or hematomas appreciated; MSK: no tics or fasciculations; +2 pitting edema in lower extremities bilaterally, RLE is mildly erythematous; patient demonstrates ability to wiggle toes/plantarflex/dorsiflex bilaterally without unilateral deficits Neuro: A&Ox3; normal mood and affect; fluent speech; no focal deficits; patient reports that sensation is intact and symmetric in the lower extremities bilaterally; neurovascularly intact at DP/PT Results & Data Results & Data Vital Signs (Past 12 Hours) Vital Signs Temp Pulse Pulse Resp BP BP Pulse Ox 11/01/24 11:39 87 16 99 11/01/24 11:33 88 16 135/92 95 11/01/24 11:32 135/92 11/01/24 11:04 97 11/01/24 11:02 97 H 24 100/80 97 11/01/24 10:45 94 H 20 130/94 93 11/01/24 10:21 84 18 142/93 H 98 11/01/24 10:14 103 H 11/01/24 10:09 36.7 C 96 H 16 142/93 H 96 11/01/24 10:09 36.7 C 104 H 16 142/93 H 94 11/01/24 10:08 103 H 19 96 O2 Del Method O2 Flow Rate FiO2 11/01/24 11:39 Nasal Cannula 2 11/01/24 11:33 Nasal Cannula 2 11/01/24 11:32 11/01/24 11:04 Nasal Cannula 2 11/01/24 11:02 Nasal Cannula 2 11/01/24 10:45 Room Air 11/01/24 10:21 Room Air 11/01/24 10:14 11/01/24 10:09 Nasal Cannula 2 11/01/24 10:09 Nasal Cannula 2 11/01/24 10:08 Room Air 21 Laboratory Results Abnormal lab results 11/01/24 11/01/24 Range/Units 10:12 10:18 RBC 4.17 L (4.70-6.10) M/uL Hgb 10.8 L (14.0-18.0) g/dl POC Hgb 11.6 L (14.0-18.0) g/dl Hct 34.8 L (42.0-52.0) % POC Hct 34 L (42-52) % MCHC 31.0 L (32.0-36.0) g/dL MPV 9.2 L (9.4-12.4) fL [place] # (Auto) 1.11 H (0.11-0.59) K/uL PT 12.4 H (9.0-12.0) Seconds INR 1.2 H (0.9-1.1) Chloride 108 H (98-107) mmol/L POC Anion Gap 12.0 L (16-25) mmol/L POC BUN 23 H (7-18) mg/dl BUN 24 H (6-23) mg/dl Creatinine 1.54 H (0.6-1.4) mg/dl POC Creatinine 1.7 H (0.6-1.3) mg/dl Glucose 144 H (70-99(Fasting)) mg/dl POC Glucose (other) 144 H (70-99) mg/dl Calcium 8.4 L (8.6-10.3) mg/dl Diagnostic Findings Hip/Pelvis X-Ray 11/01/24 10:12 XR hip RT 2V w pelvis CLINICAL HISTORY: R hip pain s/p fall COMPARISON: None FINDINGS: There is an acute mildly comminuted mildly displaced fracture at the proximal right femur. The main fracture lucency extends from the lesser trochanter inferiorly and laterally. Another portion of the fracture extends superiorly to the greater trochanter. There is one half shaft width medial displacement and mild angulation. IMPRESSION: Acute proximal right femur fracture. ACT 112: Negative or not required by law. Electronically signed by: Giles Caballero M.D. 11/01/2024 10:[address] 11/01/24 10:13 CT OF THE CERVICAL SPINE WITHOUT CONTRAST CLINICAL HISTORY: Trauma COMPARISON STUDY: No previous studies for comparison. TECHNIQUE: Helical axial images of the cervical spine were obtained without IV contrast. Sagittal and coronal reconstructions were viewed. Automated exposure control was utilized for the study. A dose lowering technique was utilized adhering to the principles of ALARA. FINDINGS: This study is mildly compromised by artifact. No cervical spine fractures are identified. There is reversal of the cervical lordosis. There is moderate degenerative disc disease with disc space narrowing and endplate osteophytosis. There is severe multilevel facet arthrosis. There is no prevertebral edema. IMPRESSION: 1. No acute cervical spine fracture or subluxation. Exam mildly compromised by motion artifact. 2. Moderate degenerative disc disease and severe facet arthrosis within the cervical spine. ACT 112: Negative or not required by law. Electronically signed by: Uli Zhang M.D. 11/01/2024 10:57 AM Chest X-Ray 11/01/24 10:13 XR chest 1V portable CLINICAL HISTORY: Trauma COMPARISON STUDY: 06/04/2024 FINDINGS: Stable cardiomegaly with mild pulmonary vascular congestion. Inspiration is shallow. No effusion, consolidation, or pneumothorax. No grossly displaced rib fracture seen. Bilateral shoulder prostheses are stable. IMPRESSION: No acute findings seen. ACT 112: Negative or not required by law. Electronically signed by: Giles Caballero M.D. 11/01/2024 10:[address] 11/01/24 10:13 CT head/brain wo con CLINICAL HISTORY: Trauma. TECHNIQUE: Multiple axial CT images of the head were obtained without contrast. A dose lowering technique was utilized adhering to the principles of ALARA. CT DOSE: 1235 COMPARISON: None FINDINGS: No intracranial hemorrhage seen. No mass effect, midline shift, or hydrocephalus. There is mild chronic small vessel ischemic change. No skull fracture seen. Visualized paranasal sinuses and mastoid air cells are clear. IMPRESSION: No acute findings. ACT 112: Negative or not required by law. The above report was generated using voice recognition software. It may contain grammatical, syntax or spelling errors. Electronically signed by: Giles Caballero M.D. 11/01/2024 10:48 AM ECG Additional Comments: ECG revealed atrial fibrillation at 91 bpm; QTc 492 Code Status & VTE Plan Code Status Full code VTE Prophylaxis Plan VTE Prophylaxis will be ordered: No Supervising Physician Co-Signing Physician Notes I have personally seen, evaluated and examined the patient. I have also personally discussed the management of the patient with the resident physician/HUMA and I agree with the exam findings documented in the history and physical examination and the documented assessment and plan unless otherwise stated below. Brief Exam: In general very pleasant 79-year-old male he is accompanied by his his son and his son's at the time of my examination. The patient is alert and oriented x 3. His only complaint is left hip pain he states is tolerable right now that it "comes and goes" right now he rates it a 2-3. We did explain that he will not be pain-free till after surgery but we are try to control the pain under a level 4. Tentative plan is for the OR tomorrow given his Xarelto use last night. HEENT: Significant neck pain. Neck: Supple no rigidity. He does have a increase in his neck circumference. Concern for possible sleep apnea but he has no history of this whatsoever. Heart: Irregular rate and rhythm consistent with atrial fibrillation rate controlled in the 80s to 90s. No yani murmur appreciated. Lungs: Diminished but clear. Abdomen: Protuberant soft nontender positive bowel sounds. Extremities: Changes of onychomycosis using chronic venous stasis. Right lower extremity is externally rotated and shortened. But neurovascularly intact. Neurologically: No focal deficit on exam. Assessment/plan: As discussed above. Hold Xarelto will use SCDs for prophylaxis currently restart Xarelto postoperatively when okay with orthopedics. Tentative plan is for n.p.o. after midnight and surgery for ORIF of the right hip in the morning. Please refer to orders for further planning. PG Care Time/CCT Total # of Minutes Spent Total Time Spent with Patient: Total time spent is greater than 50% in coordination of care (as documented) at patient's floor/unit and/or counseling patient: [place] [address] INT INP/OBS CARE 3/75MIN Patient Type New Medical Decision Making High Complexity Diagnoses Right femoral fracture S72.91XA Atrial fibrillation I48.91 Anemia D64.9
--- NOTE | 2024-11-01 13:50 | Electrocardiogram Report ---
Test Reason : Blood Pressure : */* mmHG Vent. Rate : 91 BPM Atrial Rate : * BPM P-R Int : * ms QRS Dur : 118 ms QT Int : 400 ms P-R-T Axes : * 53 -7 degrees QTcB Int : 492 ms Atrial fibrillation Incomplete right bundle branch block Prolonged QT Abnormal ECG When compared with ECG of 04-Jun-2024 08:54, No significant change Confirmed by Amadou Krishnan ([id number]) on 11/01/2024 1:50:12 PM Referred By: REFERRED SELF Confirmed By: Amadou Krishnan
[2024-11-01] MEDS: SODIUM CHLORIDE 0.9% 1,000 ML IV SCH (14:58)
[2024-11-01 15:47] LABS: Hematocrit (blood only) 31.7 % (42.0-52.0); Hemoglobin 9.9 g/dl (14.0-18.0)
--- NOTE | 2024-11-01 15:55 | Orthopedic Consultation ---
Date of Service November 01, 2024 Assessment & Plan (1) Right femoral fracture: We discussed diagnosis and treatment options at bedside. I recommended intramedullary nail fixation of the right hip. He understands the risk, benefits, and alternatives to procedures elected to proceed. Questions were answered at bedside. Time was spent scribing the procedure and postop expectations. Decision was made for surgery. We will hold on his Xarelto. He will be n.p.o. past midnight tonight. We plan to fix his hip tomorrow. History of Present Illness Reason for Consultation: Right subtrochanteric hip fracture. Requesting Physician: Josephine Adam is a pleasant 79-year-old male who was taking the trash out earlier this morning. He slipped on the snow and ice. He fell directly onto his right hip. He had severe right hip pain. He was brought by ambulance to the emergency room. Radiographs demonstrated a displaced subtrochanteric hip fracture. He was admitted to the medical service. Orthopedics was consulted to evaluate and treat.. Allergies Allergy/AdvReac Type Severity Reaction Status Date / Time No Known Drug Allergies Allergy Unknown . Verified 07/12/24 10:18 Home Medications Medication Instructions Recorded Confirmed Type tamsulosin 0.4 mg capsule 0.4 mg PO DAILY 05/24/19 11/01/24 History finasteride 5 mg tablet 5 mg PO DAILY #90 tabs 10/11/24 11/01/24 Rx Xarelto 15 mg PO DAILY 11/01/24 11/01/24 History amiodarone 200 mg PO .3X WEEK 11/01/24 11/01/24 History atorvastatin 40 mg PO DAILY 11/01/24 11/01/24 History colesevelam 3.75 gram oral powder 3.75 g PO QAM 11/01/24 11/01/24 History packet (WelChol) famotidine 40 mg tablet 40 mg PO BID 11/01/24 11/01/24 History fluticasone 250 mcg-salmeterol 50 1 inh inhalation BID 11/01/24 11/01/24 History mcg/dose blistr powdr for inhalation (Advair Diskus) furosemide 40 mg tablet 40 mg PO DAILY 11/01/24 11/01/24 History metoprolol tartrate 25 mg PO BID 11/01/24 11/01/24 History Past Med/Surg History Problem List Anemia Atrial fibrillation Right femoral fracture Fall from standing (Acute) Fracture of proximal end of right femur (Acute) Hydronephrosis, left Left ureteral stone Calcium nephrolithiasis Arthritis (Acute) Hypercholesterolemia (Acute) Hypertension (Acute) Papillary transitional cell carcinoma of bladder (Acute) Recurrent bladder transitional cell carcinoma (Acute) BPH with obstruction/lower urinary tract symptoms History of bladder cancer Medical History Calculus of kidney and ureter Gross hematuria Hydrocele Nocturia UTI (urinary tract infection) Surgical History H/O vasectomy H/O shoulder surgery History of knee replacement Hx of colonoscopy H/O hernia repair H/O heart surgery Family History Father Heart disease Mother Diabetes Hypertension Skin cancer Social History Smoking Status: Never smoker Hx Alcohol Use: Yes marital status: current occupational status: retired Feels Safe at Home: Yes Review of Systems All systems reviewed & are unremarkable except as noted in HPI & below. Physical Exam On physical exam of the right hip, the leg is shortened and externally rotated. There are no abrasions, lesions, or lacerations of the skin.. Constitutional WD/WN, vitals as above Eyes PERRL, conjunctivae normal, anicteric sclerae ENMT external ear and nose normal, oropharynx normal Neck trachea midline, no thyromegaly Respiratory normal respiratory effort Cardiovascular RRR, no murmur, no edema Gastrointestinal (Abdomen) normal bowel sounds, soft, nontender, no hepatosplenomegaly Psychiatric A+Ox3, euthymic affect Results & Data Results & Data Laboratory Results . Diagnostic Findings X-rays of the right hip and pelvis were reviewed. They show a displaced right subtrochanteric hip fracture.. PG Care Time/CCT Total # of Minutes Spent Total Time Spent with Patient: Total time spent is greater than 50% in coordination of care (as documented) at patient's floor/unit and/or counseling patient: Coding Level of Care Code 97965 IN/OBS CONSULT LVL 4,60M (57 - DECISION FOR SURGERY) Diagnoses Right femoral fracture S72.91XA
[2024-11-01] MEDS ORDERED: MoRPHine SULFATE 2 MG/ML CARP IV PRN (16:42)
[2024-11-01 17:58] LABS: Ferritin 73.1 ng/ml (8-388)
[2024-11-01] MEDS: MoRPHine SULFATE 4 MG/ML 1 ML CARP\\VIAL IV PRN (18:18)
[2024-11-01] MEDS: ONDANSETRON INJ 2 MG/ML 2 ML VIAL IV PRN (18:19)
[2024-11-01 19:09] LABS: Hematocrit (blood only) 30.8 % (42.0-52.0); Hemoglobin 9.6 g/dl (14.0-18.0)
[2024-11-01] MEDS: METOPROLOL TARTRATE 25 MG TAB PO SCH (22:27)
[2024-11-02 00:24] LABS: Hemoglobin 9.4 g/dl (14.0-18.0)
[2024-11-02 07:24] LABS: Basophils # (auto) 0.03 K/uL (0.00-0.20); Basophils % (auto) 0.4 %; Eosinophils # (auto) 0.08 K/uL (0.00-0.50); Eosinophils % (auto) 0.9 %; Hematocrit (blood only) 30.1 % (42.0-52.0); Hemoglobin 9.3 g/dl (14.0-18.0); Immature Granulocytes # (auto) 0.03 K/uL (0.01-0.20); Immature Granulocytes % (auto) 0.4 %; Lymphocytes # (auto) 0.89 K/uL (1.20-3.40); Lymphocytes % (auto) 10.5 %; Mean Corpuscular Hgb Conc 30.9 g/dL (32.0-36.0); Mean Corpuscular Volume 84.1 fL (80.0-100.0); Mean Platelet Volume 9.8 fL (9.4-12.4); Monocytes # (auto) 1.55 K/uL (0.11-0.59); Monocytes % (auto) 18.2 %; Neutrophils # (auto) 5.92 K/uL (1.40-6.50); Neutrophils % (auto) 69.6 %; Platelet Count 326 K/uL (130-400); RDW Coefficient of Variation 14.2 % (11.5-14.5); RDW Standard Deviation 43.9 fL (36.4-46.3); Red Blood Count 3.58 M/uL (4.70-6.10)
[2024-11-02 07:42] LABS: BUN Creatinine Ratio 16.1 (10-20); Calcium 8.4 mg/dl (8.6-10.3); Creatinine Clr Calc Pharmacy 48.7 ml/min; Potassium 5.2 mmol/L (3.5-5.1)
--- NOTE | 2024-11-02 09:14 | Orthopedic Progress Note ---
Date of Service November 02, 2024 Assessment & Plan (1) Fracture of proximal end of right femur: NPO. Discussed surgical procedure with him, procedure explained including risks, benefits and alternatives. He wants to proceed with surgery as planned today. Consent obtained for intramedullary nailing. Subjective . 79 year old patient with a right subtroch hip fx. C/o right hip pain and just did receive some medicine for pain. No other complaints. Review of Systems All systems reviewed & are unremarkable except as noted in HPI & below. Physical Exam . alert and oriented. NAD. VSS Right leg: shortened and externally rotated. Able to DF/PF. NVI Results & Data Results & Data Laboratory Results . Diagnostic Findings . PG Care Time/CCT Total # of Minutes Spent Total Time Spent with Patient: Total time spent is greater than 50% in coordination of care (as documented) at patient's floor/unit and/or counseling patient: Coding Level of Care Code 79046 SUB INP/OBS CARE 10/23MIN Diagnoses Fracture of proximal end of right femur S72.001A
[2024-11-02] MEDS: LACTATED RINGER'S 1,000 ML IV SCH (10:20)
--- NOTE | 2024-11-02 10:21 | Anesthesiology Consultation ---
Date of Service November 02, 2024 Assessment & Plan Chart Review Chart Review: Acceptable Risk for Surgery and Patient NOT seen in Pre Admission Testing Consults Requested none History Surgery Operation Date: 11/02/24 07:00 Proposed Procedures p Right Trochanteric Femoral Nail - Kvng Shook MD Height/Weight Height: 5 ft 6 in Weight: 98 kg Allergies Allergy/AdvReac Type Severity Reaction Status Date / Time No Known Drug Allergies Allergy Unknown . Verified 07/12/24 10:18 Medications Home Medications Medication Instructions Recorded Confirmed Last Taken tamsulosin 0.4 mg capsule 0.4 mg PO DAILY 05/24/19 11/01/24 Unknown finasteride 5 mg tablet 5 mg PO DAILY #90 tabs 10/11/24 11/01/24 Unknown Xarelto 15 mg PO DAILY 11/01/24 11/01/24 Unknown amiodarone 200 mg PO .3X WEEK 11/01/24 11/01/24 Unknown atorvastatin 40 mg PO DAILY 11/01/24 11/01/24 Unknown colesevelam 3.75 gram oral powder 3.75 g PO QAM 11/01/24 11/01/24 Unknown packet (WelChol) famotidine 40 mg tablet 40 mg PO BID 11/01/24 11/01/24 Unknown fluticasone 250 mcg-salmeterol 50 1 inh inhalation BID 11/01/24 11/01/24 Unknown mcg/dose blistr powdr for inhalation (Advair Diskus) furosemide 40 mg tablet 40 mg PO DAILY 11/01/24 11/01/24 Unknown metoprolol tartrate 25 mg PO BID 11/01/24 11/01/24 Unknown Active Medications Generic Name Dose Route Start Last Admin Trade Name Freq PRN Reason Stop Dose Admin Sodium Chloride 1,000 mls @ 80 mls/hr 11/01/24 14:15 11/02/24 10:05 Nss IV 11/02/24 14:14 0 mls/hr .[id number] MICHEAL Infusion Lactated Ringer's 1,000 mls @ 15 mls/hr 11/02/24 10:30 11/02/24 10:20 Lr IV 11/03/24 10:29 15 mls/hr .Q24H MICHEAL Administration Metoprolol Tartrate 25 mg 11/01/24 21:00 11/01/24 22:27 Metoprolol Tartrate 25 Mg Tab PO 12/01/24 20:59 25 mg BID MICHEAL Administration Miscellaneous 1 each 11/01/24 17:00 11/02/24 08:11 *Colesevelam*Order Awaiting Action N/A 12/01/24 16:59 Not Given QS MICHEAL Ondansetron HCl 4 mg 11/01/24 16:42 11/01/24 18:19 Ondansetron Inj 2 Mg/Ml 2 Ml Vial IV 12/01/24 16:41 4 mg Q6H PRN Administration Nausea NPO Date Last Intake of Fluids: 11/01/24 Time Last Intake of Fluids: 23:00 Date Last Intake of Solids: 11/01/24 Time Last Intake of Solids: 23:00 Past Medical History Medical History Calculus of kidney and ureter Gross hematuria Hydrocele Nocturia UTI (urinary tract infection) Past Family History Family History Father Heart disease Mother Diabetes Hypertension Skin cancer Past Surgical History Surgical History H/O vasectomy H/O shoulder surgery History of knee replacement Hx of colonoscopy H/O hernia repair H/O heart surgery Social History Smoking Status: Never smoker Hx Alcohol Use: No Hx Substance Use: No Physical Exam Vital Signs Last Vital Signs Temp 37 C 11/02/24 10:06 Pulse 84 11/02/24 10:06 Resp 20 11/02/24 10:06 BP 113/70 11/02/24 10:06 Pulse Ox 98 11/02/24 10:06 O2 Del Method Nasal Cannula 11/02/24 10:06 O2 Flow Rate 2 11/02/24 10:06 FiO2 21 11/01/24 10:08 Testing Laboratory Results 11/02/24 06:24 11/02/24 06:24 PT 12.4 Seconds (9.0-12.0) H 11/01/24 10:12 INR 1.2 (0.9-1.1) H 11/01/24 10:12 APTT 29 Seconds (21-31) 11/01/24 10:12 Urine Color Yellow 11/01/24 12:10 Urine Appearance Clear (Clear) 11/01/24 12:10 Urine pH 5.0 (4.5-7.5) 11/01/24 12:10 Ur Specific Drake 1.015 (1.000-1.030) 11/01/24 12:10 Urine Protein Negative (Negative) 11/01/24 12:10 Urine Glucose (UA) Negative (Negative) 11/01/24 12:10 Urine Ketones Negative (Negative) 11/01/24 12:10 Urine Nitrite Negative (Negative) 11/01/24 12:10 Ur Leukocyte Esterase Negative (Negative) 11/01/24 12:10 Blood Type AB Positive 11/01/24 10:12 Antibody Screen NEGATIVE 11/01/24 10:12
[2024-11-02] MEDS ORDERED: fentaNYL citrate PF 100 MCG/2 ML VIAL IV PRN (10:34)
[2024-11-02] MEDS ORDERED: MEPERIDINE HCL 25 MG/ML CARP/VIAL IV PRN (10:34)
[2024-11-02] MEDS ORDERED: PROMETHAZINE HCL 6.25 MG in SODIUM CHLORIDE 0.9% 50 ML IV PRN (10:34)
[2024-11-02] MEDS ORDERED: ATROPINE SULFATE 0.1 MG/ML 10ML SYR IV PRN (10:34)
[2024-11-02] MEDS ORDERED: ePHEDrine sulfate 50 MG/ML AMP IV PRN (10:34)
[2024-11-02] MEDS ORDERED: ONDANSETRON INJ 2 MG/ML 2 ML VIAL IV PRN (10:34)
[2024-11-02] MEDS ORDERED: fentaNYL citrate PF 100 MCG/2 ML VIAL ONE (10:43)
[2024-11-02] MEDS ORDERED: MIDAZOLAM HCL 1 MG/ML 2ML VIAL ONE (10:44)
--- NOTE | 2024-11-02 10:47 | History & Physical Bridge Note ---
Date of Service November 02, 2024 History & Physical Bridge Note I have examined the patient, reviewed the History & Physical and in the interval since the performance of the History & Physical I have noted the following changes of clinical significance: no changes noted
[2024-11-02] MEDS ORDERED: PROPOFOL IV EMULSION 10 MG/ML 20 ML VIAL IV ONE (10:50)
[2024-11-02] MEDS ORDERED: LIDOCAINE 2% 2 ML VIAL/AMP(20MG/ML) INFIL ONE (10:50)
[2024-11-02] MEDS ORDERED: ONDANSETRON INJ 2 MG/ML 2 ML VIAL ONE (10:50)
[2024-11-02] MEDS ORDERED: ROCURONIUM BROMIDE 10 MG/ML 5 ML VIAL IV ONE (10:50)
[2024-11-02] MEDS ORDERED: PHENYLEPHRINE HCL 10 MG/ML VIAL ONE (11:36)
[2024-11-02] MEDS: ceFAZolin 2000MG 2,000 MG/15 ML SYR IV ONE (11:49)
[2024-11-02] MEDS: TRANEXAMIC ACID / 0.7% NACL 1000MG/100ML BAG IV ONE (11:53)
[2024-11-02] MEDS: BUPIVACAINE/EPINEPHRINE 0.5% MPF 1:200,000 30 ML VIAL ONE (12:51)
[2024-11-02] MEDS: TRANEXAMIC ACID / 0.7% NACL 1,000 MG/100 ML BAG IV ONE (12:53)
[2024-11-02] MEDS ORDERED: ceFAZolin 330 MG/ML 1 GM VIAL ONE (13:00)
[2024-11-02] MEDS ORDERED: SUGAMMADEX SODIUM 200 MG/2 ML VIAL IV ONE (13:00)
--- NOTE | 2024-11-02 13:09 | Fluoroscopy Report ---
FL hip RT 2-3V CLINICAL HISTORY: RT TROCH NAIL COMPARISON STUDY: None FLUOROSCOPY TIME: 178 seconds FLUOROSCOPY IMAGES: 6 EXPOSURE DOSE: 42 mGy FINDINGS: Fluoroscopy was provided for right femoral gamma nail placement for proximal fracture. IMPRESSION: Intraoperative fluoroscopy. ACT 112: Negative or not required by law. Electronically signed by: Giles Caballero M.D. 11/02/2024 1:08 PM
--- NOTE | 2024-11-02 13:23 | Operative Report ---
PG Post Operative Report Pre & Post Diagnosis Operation Date: 11/02/24 07:00 Pre-Op Diagnosis: Fracture of proximal end of right femur-intra troches/subtrochanteric femur fracture. Post-Op Diagnosis: Fracture of proximal end of right femur-intertrochanteric/subtrochanteric femur fracture. I identified the patient and participated in the time-out.: Yes Procedure Operation Date: 11/02/24 07:00 Actual Procedures p Right Trochanteric Femoral Nail(Right) - Kvng Shook MD Surgeon Kvng Shook MD Fish Frog Or Oyster Farmer Jeb Giles PA-C Estimated Blood Loss 100 Findings Consistent with Post-Op Diagnosis Specimens None Anesthesia Type General Complications none Disposition Accompanied Patient To Recovery: No Indications Patient is a 79-year-old gentleman who stained a fall yesterday. He was placed putting his garbage out and slipped on the ice. He had acute onset of pain. He is brought the emergency room x-rays of the right intertrochanteric/subtrochanteric femur fracture. The patient is admitted by the medical service, medically optimized, and indicated for surgical repair. Description of Procedure Operative implants consist of: 1 Synthes right 360 mm x 10 mm long trochanteric nail. 2. 95 mm helical blade. 3. 44 x 5.0 mm distal interlocking screw. The patient was taken the op room, identified, placed on the operating table in the supine position. All conductors were appropriately padded. IV antibiotics were provided by the anesthesia team. Patient also received 1 g of tranexamic acid. A general anesthetic was implemented. The patient is then placed on the fracture table. The right leg was placed in boot traction the left leg was placed in a well-leg strong. Applied some longitudinal traction of the right foot and internally rotated the foot so the knee Pointed to the ceiling. Some x-rays were obtained. The fracture was significant displaced with significant sag on the lateral film. It was aligned up and is a slight bit of varus on the AP films and we cannot correct this with traction alone. The right hip and leg were then scrubbed with Hibiclens, prepped with ChloraPrep and draped in usual sterile fashion. A curvilinear incision made just proximal tip of the trochanter. Sharp dissection was got through subcutaneous tissue down to level the gluteal fascia. Gluteal fascia was sized longitudinally. I then placed a guidewire just on the lateral tip of the trochanter on both AP and lateral planes. We advanced this down the canal and into the canal once proper positioning of the guidewire is assured we overreamed this with the a large Synthes reamer and then exchanged the sharp guard guidewire for a ball-tipped guidewire. We measured for nail length and 360 mm nail was selected. I then passed an 11 and half millimeter reamer over the guidewire and got cortical chatter so we elected to place a 10 mm nail. A a Synthes right 360 mm x 10 mm long trochanteric nail was then placed over the guidewire. Was tapped into position. The lateral aiming arm was attached. A stab incision was made and the lateral aiming arm was advanced the lateral aspect the femur. We did apply some longitudinal traction to the femur and tried to lift the femur up as we have placed a guidewire in the central aspect of the femoral head and neck. We had difficulty correcting all the varus step. We did place a guidewire in the inferior aspect of the femoral neck but I did end up just being slightly superior to the central aspect of the femoral head. I felt this is as optimal as we could do considering the slight varus appearance. The guidewire was measured and a 95 mm helical blade was selected. The cortical drill was used to breach the cortex and the triple reamer was set at 95 and overreamed the guidewire. A 95 mm helical blade was then tapped into position. The proximal setscrew was tightened and the proximal aiming arm was then removed. Safyral x-rays were obtained. There was some displacement of the anterior fragment and I did not feel like it could adequately reduce this any better. We did take the traction off and allow the fracture to compress to a more stable configuration. Attention then drawn toward distal interlocking. Using a perfect wiyot technique a distal interlocking screw was placed in the dynamic hole. Stab incision was made. The drill was used to drill a hole in the 5.0 mm x 44 mm distal interlocking screw was placed in the dynamic hole. Some final x-rays were obtained. Attention drawn toward closing. All wounds were irrigated extensively. I injected locally with 30 cc of half percent Marcaine with epinephrine. The gluteal fascia was then closed with #1 Vicryl suture in a running fashion the subcutaneous tissue was then closed with 2 layers the deep layer #1 Vicryl suture in the subcutaneous tissues with 2-0 Dexon suture in a buried interrupted fashion. Skin was closed skin ryan. Leg was then cleaned and dried a sterile dressing with Xeroform, 4 fours, ABD pad and foam tape was applied. The patient then taken off the fracture table and transported to the recovery room after being brought out of general anesthesia. The patient tolerated procedure well and there were no complications. Jeb Giles, my physician nursing assistants teacher, was present for the entire procedure. His assistance was required for proper patient positioning, prepping and draping, surgical exposure, retraction, placement of hardware, closure of the incision site, and placement of the postoperative sterile bandage. I attest to the content of the Intraoperative Record and any orders documented therein. Any exceptions are noted below.
--- NOTE | 2024-11-02 13:48 | Anesthesiology Progress Note ---
Date of Service November 02, 2024 Anesthesia Post Procedure Vital Signs Vital Signs: Temp Pulse Pulse Resp BP Pulse Ox O2 Del Method 11/02/24 13:40 99 H 16 105/67 94 Oxymask 11/02/24 13:30 110 H 15 125/66 93 Oxymask 11/02/24 13:20 101 H 15 131/75 98 Oxymask 11/02/24 13:13 36.9 C 101 H 15 122/79 90 Oxymask 11/02/24 10:06 37 C 84 20 113/70 98 Nasal Cannula 11/02/24 09:26 Nasal Cannula 11/02/24 07:44 36.5 C 96 H 17 116/75 97 Room Air 11/02/24 07:31 86 11/02/24 02:39 36.8 C 85 20 127/86 100 Nasal Cannula 11/01/24 22:45 36.5 C 83 18 135/83 99 Nasal Cannula 11/01/24 22:30 Nasal Cannula 11/01/24 21:45 83 11/01/24 21:22 131/86 11/01/24 18:10 36.6 C 84 20 148/91 H 97 Nasal Cannula 11/01/24 17:43 86 16 126/79 99 Nasal Cannula 11/01/24 16:00 86 16 119/74 92 Nasal Cannula 11/01/24 15:00 81 16 99 Nasal Cannula 11/01/24 14:42 84 11/01/24 14:00 82 16 100/78 94 Nasal Cannula O2 Flow Rate 11/02/24 13:40 5 11/02/24 13:30 9 11/02/24 13:20 9 11/02/24 13:13 5 11/02/24 10:06 2 11/02/24 09:26 3 11/02/24 07:44 11/02/24 07:31 11/02/24 02:39 11/01/24 22:45 2 11/01/24 22:30 2 11/01/24 21:45 11/01/24 21:22 11/01/24 18:10 2 11/01/24 17:43 2 11/01/24 16:00 2 11/01/24 15:00 2 11/01/24 14:42 11/01/24 14:00 2 Pain Intensity Right Hip: Pain Intensity: 4 Transfer of Care Handoff Completed per policy Notes Mental Status: alert / awake / arousable Patient Amnestic to Procedure: Yes Nausea / Vomiting: adequately controlled Pain: adequately controlled Airway Patency, RR, SpO2: stable & adequate BP & HR: stable & adequate Hydration State: stable & adequate Anesthetic Complications: no major complications apparent and Pt Satisfied with anesthetic care
[2024-11-02] MEDS: IRON SUCROSE 300 MG in SODIUM CHLORIDE 0.9% 250 ML IV SCH (14:17)
[2024-11-02] MEDS: ATORVASTATIN 40 MG TAB PO SCH (14:20)
[2024-11-02] MEDS: FLUTICASONE/VILANTEROL 200/25MCG 14 PUFFS/INHALER INH SCH (14:20)
[2024-11-02] MEDS: FAMOTIDINE 20 MG TAB PO SCH (14:20)
[2024-11-02] MEDS: FINASTERIDE 5 MG TAB PO SCH (14:20)
--- NOTE | 2024-11-02 18:06 | Hospitalist Progress Note ---
Date of Service November 02, 2024 Assessment & Plan (1) Right femoral fracture: Plan: Orthopedic consultation and recommendations appreciated. He underwent open reduction internal fixation with right femur nailing today, November 02. Xarelto will be restarted in the next day or 2 (2) Atrial fibrillation: Plan: Chronic. Rate is currently controlled. Xarelto is on hold. Telemetry (3) Anemia: Plan: Combined acute blood loss anemia and iron deficiency. Venofer has been started, day 1 of 3. Serial labs (4) Iron deficiency: Plan: Parenteral iron replacement daily for 3 days. Oral iron replacement daily going forward (5) Chronic kidney disease, stage III (moderate): Plan: Monitor intake and output. Serial labs Plan He will need rehab placement at the time of discharge. Admission and Anticipated Discharge Date Admission Date: November 01, 2024 Subjective The patient was seen postoperatively. He underwent open reduction internal fixation with nailing of the right femur fracture. He is slightly lethargic and oriented to name and place. Xarelto remains on hold. He is iron deficient and parenteral Venofer therapy has been started. Incentive spirometry has been ordered. Review of Systems 2 Review of Systems: Constitutionalno fever or chills ENTno blurred vision, no double vision, no epistaxis, no sore throat Respiratoryno cough, no wheezing, no shortness of breath Cardiacno palpitations, no chest pain, no syncope Edward nausea, vomiting, diarrhea, melena, hematochezia GUno urinary retention, no urinary incontinence, no dysuria, no hematuria Musculoskeletaldiscomfort at right leg surgical site. No muscle tenderness Skinno bruising, no rashes, no pruritus Neurono isolated weakness, no paresthesia, no weakness Psychno depression, no anxiety Physical Exam 2 Physical Exam: General-mildly lethargic postoperatively. No fever HEENT-head atraumatic and normocephalic, pupils equal and reactive to light, extraocular muscles intact Neck-no lymphadenopathy or thyromegaly, trachea midline Chest-clear to auscultation. No rales, wheezing or rhonchi Cardiac-regular rate and rhythm, normal S1 and S2 Abdomen-normal bowel sounds, no hepatosplenomegaly Extremities-right hip surgical site is bandaged with no evidence of bleeding on the bandage Neuro- cranial nerves II through XII intact, motor and sensory function within normal limits, strength symmetrical, no focal deficits Psych-normal affect, normal mood Results & Data Results & Data Vital Signs (Past 12 Hours) Vital Signs Temp Pulse Pulse Resp BP Pulse Ox O2 Del Method 11/02/24 15:01 95 H 11/02/24 14:58 95 H 16 126/86 93 Oxymask 11/02/24 14:17 98 H 16 97/66 L 90 Nasal Cannula 11/02/24 13:50 36.6 C 105 H 16 113/74 94 Oxymask 11/02/24 13:40 99 H 16 105/67 94 Oxymask 11/02/24 13:30 110 H 15 125/66 93 Oxymask 11/02/24 13:20 101 H 15 131/75 98 Oxymask 11/02/24 13:13 36.9 C 101 H 15 122/79 90 Oxymask 11/02/24 10:06 37 C 84 20 113/70 98 Nasal Cannula 11/02/24 09:26 Nasal Cannula 11/02/24 07:44 36.5 C 96 H 17 116/75 97 Room Air 11/02/24 07:31 86 O2 Flow Rate 11/02/24 15:01 11/02/24 14:58 3 11/02/24 14:17 3 11/02/24 13:50 2 11/02/24 13:40 5 11/02/24 13:30 9 11/02/24 13:20 9 11/02/24 13:13 5 11/02/24 10:06 2 11/02/24 09:26 3 11/02/24 07:44 11/02/24 07:31 Laboratory Results 11/02/24 06:24 11/02/24 06:24 PG Care Time/CCT Total # of Minutes Spent Total Time Spent with Patient: Total time spent is greater than 50% in coordination of care (as documented) at patient's floor/unit and/or counseling patient: Coding Level of Care Code 89307 SUB INP/OBS CARE 3/50MIN Diagnoses Right femoral fracture S72.91XA Atrial fibrillation I48.91 Anemia D64.9 Iron deficiency E61.1 Chronic kidney disease, stage III (moderate) N18.30
[2024-11-02] MEDS: ceFAZolin 2000MG 2,000 MG/15 ML SYR IV SCH (18:26)
[2024-11-03] MEDS: MoRPHine SULFATE 2 MG/ML CARP IV PRN (02:43)
[2024-11-03 05:05] LABS: Basophils # (auto) 0.03 K/uL (0.00-0.20); Basophils % (auto) 0.3 %; Eosinophils # (auto) 0.01 K/uL (0.00-0.50); Eosinophils % (auto) 0.1 %; Hemoglobin 8.4 g/dl (14.0-18.0); Immature Granulocytes # (auto) 0.06 K/uL (0.01-0.20); Immature Granulocytes % (auto) 0.5 %; Lymphocytes # (auto) 1.13 K/uL (1.20-3.40); Mean Corpuscular Hemoglobin 25.9 pg (25.0-34.0); Mean Corpuscular Hgb Conc 31.1 g/dL (32.0-36.0); Mean Corpuscular Volume 83.3 fL (80.0-100.0); Mean Platelet Volume 9.6 fL (9.4-12.4); Monocytes # (auto) 2.18 K/uL (0.11-0.59); Monocytes % (auto) 19.3 %; Neutrophils # (auto) 7.87 K/uL (1.40-6.50); Neutrophils % (auto) 69.8 %; Platelet Count 274 K/uL (130-400); RDW Coefficient of Variation 14.3 % (11.5-14.5); RDW Standard Deviation 43.6 fL (36.4-46.3); Red Blood Count 3.24 M/uL (4.70-6.10); White Blood Count 11.28 K/ul (4.8-10.8)
[2024-11-03 05:26] LABS: BUN Creatinine Ratio 13.7 (10-20); Calcium 8.1 mg/dl (8.6-10.3); Creatinine Clr Calc Pharmacy 45.7 ml/min; Potassium 4.5 mmol/L (3.5-5.1)
[2024-11-03] MEDS: ACETAMINOPHEN 1,000 MG/100 ML VIAL IV PRN (08:37)
[2024-11-03] MEDS: AMIODARONE 200 MG TAB PO SCH (08:41)
--- NOTE | 2024-11-03 09:54 | XRay Report ---
XR chest 1V portable CLINICAL HISTORY: post op hypoxia COMPARISON STUDY: 11/01/2024 FINDINGS: There is stable cardiomegaly without pulmonary vascular congestion. Inspiration is shallow. There is mild stranding at the left base. No other consolidation or pleural effusion. No pneumothora x. IMPRESSION: Mild atelectasis left lung base. ACT 112: Negative or not required by law. Electronically signed by: Giles Caballero M.D. 11/03/2024 9:53 AM
[2024-11-03] MEDS: IRON SUCROSE 300 MG in SODIUM CHLORIDE 0.9% 250 ML IV ONE (10:08)
--- NOTE | 2024-11-03 10:50 | Orthopedic Progress Note ---
Date of Service November 03, 2024 Assessment & Plan (1) Fracture of proximal end of right femur: (2) S/P ORIF (open reduction internal fixation) fracture: (3) Aftercare for healing traumatic closed fracture of right hip: Plan 71-year-old male POD#1 s/p ORIF of RIGHT intertrochanteric/subtrochanteric femur/hip fracture with long IM nail, cannulated femoral head/neck compression screw, and dynamic distal locking screw. Explained to the patient his fracture mechanism and morphology and why he would have difficulty with right hip flexion. Plan: 1. DVT prophylaxis w/ home dose Xarelto 15 mg daily; restart 48 hrs post-op. 2. PT/OT as tolerated. WBAT on RLE. 3. Pain relatively well-controlled continue current regimen. 4. Medical management as per the primary medicine service. 5. Dressing may be changed on POD#3; while inpatient, he should have the operative sites covered, but when discharged, surgical wound can be left open to air. Plan for staple removal at 2-week postop check. 6. Disposition - pending PT/OT evals and progress; short-term rehab vs. home. 7. Follow-up outpatient with Dr. Shook's team 2 to 3 weeks postop. Subjective Patient is POD#1 s/p ORIF of RIGHT intertrochanteric/subtrochanteric femur/hip fracture with long IM nail, cannulated femoral head/neck compression screw, and dynamic distal locking screw by Dr. Shook on 11/02/24. Patient says he is pain is well-controlled this morning. Denies CP, SOB, N/V, RLE paresthesia. He is unsure if he will be able to return home or need to go to a rehab facility for a short stay. Patient says that he can move his ankle and toes and knee, but he is unable to flex at his right hip. Review of Systems All systems reviewed & are unremarkable except as noted in HPI & below. Physical Exam . Results & Data Results & Data Laboratory Results . Diagnostic Findings . PG Care Time/CCT Total # of Minutes Spent Total Time Spent with Patient: Total time spent is greater than 50% in coordination of care (as documented) at patient's floor/unit and/or counseling patient: Coding [place] [address] SUB INP/OBS CARE 1/25MIN Patient Type Established History Problem Focused Exam Problem Focused Medical Decision Making Straight Forward Diagnoses Fracture of proximal end of right femur S72.001A S/P ORIF (open reduction internal fixation) fracture Z98.890; Z87.81 Aftercare for healing traumatic closed fracture of right hip S72.001D
--- NOTE | 2024-11-03 16:09 | Hospitalist Progress Note ---
Date of Service November 03, 2024 Assessment & Plan (1) Right femoral fracture: Plan: Orthopedic consultation and recommendations appreciated. He underwent open reduction internal fixation with right femur nailing on November 02. Postoperative day #1. Xarelto will be restarted in the next day or 2 (2) Atrial fibrillation: Plan: Chronic. Rate is currently controlled. Xarelto is on hold. Telemetry (3) Anemia: Plan: Combined acute blood loss anemia and iron deficiency. Venofer has been started, day 2 of 3. Serial labs (4) Iron deficiency: Plan: Parenteral iron replacement daily for 3 days. Oral iron replacement daily going forward (5) Chronic kidney disease, stage III (moderate): Plan: Monitor intake and output. Serial labs Plan He will need rehab placement at the time of discharge. Placement at [facility] bed is pending Admission and Anticipated Discharge Date Admission Date: November 01, 2024 Subjective Alert and oriented. OT and PT assessments completed. Both recommend rehab placement at discharge. Portable chest x-ray today, November 03 is stable. He is still requiring low-flow oxygen. Incentive spirometry has been ordered. Continue parenteral iron replacement, day 2. Hemoglobin has drifted down slightly to 8.4. Will follow. Postoperative day #1 after open reduction internal fixation with nail of the right femur fracture. Xarelto remains on hold. Review of Systems 2 Review of Systems: Constitutionalno fever or chills ENTno blurred vision, no double vision, no epistaxis, no sore throat Respiratoryno cough, no wheezing, no shortness of breath Cardiacno palpitations, no chest pain, no syncope Edward nausea, vomiting, diarrhea, melena, hematochezia GUno urinary retention, no urinary incontinence, no dysuria, no hematuria Musculoskeletaldiscomfort at right leg surgical site. No muscle tenderness Skinno bruising, no rashes, no pruritus Neurono isolated weakness, no paresthesia, no weakness Psychno depression, no anxiety Physical Exam 2 Physical Exam: General-mildly lethargic postoperatively. No fever HEENT-head atraumatic and normocephalic, pupils equal and reactive to light, extraocular muscles intact Neck-no lymphadenopathy or thyromegaly, trachea midline Chest-clear to auscultation. No rales, wheezing or rhonchi Cardiac-regular rate and rhythm, normal S1 and S2 Abdomen-normal bowel sounds, no hepatosplenomegaly Extremities-right hip surgical site is bandaged with no evidence of bleeding on the bandage Neuro- cranial nerves II through XII intact, motor and sensory function within normal limits, strength symmetrical, no focal deficits Psych-normal affect, normal mood Results & Data Results & Data Vital Signs (Past 12 Hours) Vital Signs Temp Pulse Pulse Resp BP BP Pulse Ox 11/03/24 14:51 81 11/03/24 14:43 36.7 C 104 H 22 131/74 98 11/03/24 10:56 93 11/03/24 10:32 36.3 C L 81 17 96/63 L 97 11/03/24 09:38 11/03/24 08:52 103 H 11/03/24 07:28 37.0 C 92 H 18 99/65 L 94 O2 Del Method O2 Flow Rate 11/03/24 14:51 11/03/24 14:43 Nasal Cannula 3 11/03/24 10:56 11/03/24 10:32 Room Air 11/03/24 09:38 Nasal Cannula 2 11/03/24 08:52 11/03/24 07:28 Nasal Cannula 3 Laboratory Results 11/03/24 04:38 11/03/24 04:38 PG Care Time/CCT Total # of Minutes Spent Total Time Spent with Patient: Total time spent is greater than 50% in coordination of care (as documented) at patient's floor/unit and/or counseling patient: Coding Level of Care Code 01621 SUB INP/OBS CARE 3/50MIN Diagnoses Right femoral fracture S72.91XA Atrial fibrillation I48.91 Anemia D64.9 Iron deficiency E61.1 Chronic kidney disease, stage III (moderate) N18.30
[2024-11-04 06:41] LABS: Basophils # (auto) 0.03 K/uL (0.00-0.20); Basophils % (auto) 0.3 %; Eosinophils # (auto) 0.07 K/uL (0.00-0.50); Eosinophils % (auto) 0.7 %; Hematocrit (blood only) 23.8 % (42.0-52.0); Hemoglobin 7.4 g/dl (14.0-18.0); Immature Granulocytes # (auto) 0.08 K/uL (0.01-0.20); Immature Granulocytes % (auto) 0.8 %; Lymphocytes # (auto) 1.11 K/uL (1.20-3.40); Mean Corpuscular Hemoglobin 25.4 pg (25.0-34.0); Mean Corpuscular Hgb Conc 31.1 g/dL (32.0-36.0); Mean Corpuscular Volume 81.8 fL (80.0-100.0); Mean Platelet Volume 9.8 fL (9.4-12.4); Monocytes # (auto) 1.64 K/uL (0.11-0.59); Monocytes % (auto) 16.2 %; Neutrophils # (auto) 7.19 K/uL (1.40-6.50); Nucleated RBC # (auto) 0.04 K/uL (0.00-0.12); Nucleated RBC % (auto) 0.4 %; Platelet Count 267 K/uL (130-400); RDW Coefficient of Variation 14.3 % (11.5-14.5); RDW Standard Deviation 42.4 fL (36.4-46.3); Red Blood Count 2.91 M/uL (4.70-6.10); White Blood Count 10.12 K/ul (4.8-10.8)
[2024-11-04 07:01] LABS: BUN Creatinine Ratio 16.5 (10-20); Calcium 8.1 mg/dl (8.6-10.3); Potassium 4.4 mmol/L (3.5-5.1)
[2024-11-04 07:04] LABS: Anisocytosis Present
--- NOTE | 2024-11-04 08:15 | Orthopedic Progress Note ---
Date of Service November 04, 2024 Assessment & Plan (1) Aftercare for healing traumatic closed fracture of right hip: Plan: 79-year-old male with multiple medical comorbidities now postop day 2 from IM nailing of the right inner troches/subtalar fracture. Orthopedically seems to be doing okay. He is a bit anemic. Does not seem to be symptomatic. His pain seems adequately controlled. Plan: 1. DVT prophylaxis including Thiede teds, SCDs, and can resume his Xarelto anytime medically stable and okay to do so. His his hemoglobin is a bit low and may want a hold off on Xarelto for another day or 2 if medically acceptable. 2. PT/OT. He can fully weight-bear as tolerated in the lower extremity. 3. Pain control. Seems to be doing okay with current current pain regimen. 4. Medical management as per the medicine service. 5. Disposition. He is orthopedically okay for discharge anytime medically stable. Just needs routine wound care to the right leg. He can fully weight- bear as tolerated. I need to see him back 2 to 3 weeks out from surgery date. Any orthopedic questions can be directly [phone]. (2) S/P ORIF (open reduction internal fixation) fracture: (3) Chronic kidney disease, stage III (moderate): (4) Atrial fibrillation: Admission and Anticipated Discharge Date Admission Date: November 01, 2024 Subjective 79-year-old gentleman with multiple medical comorbidities now postop day 2 from IM nailing of a right inner troches/subtalar fracture. He is doing pretty well. Pretty comfortable lying bed. Quite a bit of pain with movement. Denies any other real complaints. No chest pain or shortness of breath. Physical Exam Physical Exam: Physical exam shows a pleasant elderly male. Sitting up in bed and eating breakfast this morning. Examination of the right leg reveals dressing be clean dry and intact. Leg is well aligned. Dressings in place. They can dorsiflex and plantarflex his foot appropriately. Results & Data Vital Signs (Past 12 Hours) Vital Signs Temp Pulse Pulse Resp BP Pulse Ox O2 Del Method 11/04/24 07:32 36.3 C L 99 H 18 99/66 L 97 Nasal Cannula 11/04/24 03:00 36.9 C 72 20 104/68 93 Nasal Cannula 11/03/24 23:14 98 H 11/03/24 22:53 36.6 C 89 22 114/73 94 Nasal Cannula 11/03/24 20:52 Nasal Cannula O2 Flow Rate 11/04/24 07:32 2 11/04/24 03:00 2 11/03/24 23:14 11/03/24 22:53 2 11/03/24 20:52 2 Laboratory Results Hemoglobin 7.4. Hematocrit is 23.8. Electrolytes are stable.
[2024-11-04] MEDS ORDERED: SODIUM CHLORIDE 0.9% 100 ML IV PRN ×2 (10:44→10:58)
[2024-11-04] MEDS ORDERED: SODIUM CHLORIDE 0.9% 50 ML IV PRN ×2 (10:44→10:58)
[2024-11-04] MEDS: FUROSEMIDE 40 MG/4 ML VIAL IV ONE (13:08)
--- NOTE | 2024-11-04 15:32 | Hospitalist Progress Note ---
Date of Service November 04, 2024 Assessment & Plan (1) Right femoral fracture: Plan: Orthopedic consultation and recommendations appreciated. He underwent open reduction internal fixation with right femur nailing on November 02. Postoperative day #2. Xarelto will be restarted when hemoglobin is stable (2) Atrial fibrillation: Plan: Chronic. Rate is currently controlled. Xarelto remains on hold. Telemetry (3) Anemia: Plan: Combined acute blood loss anemia and iron deficiency. Venofer has been started, he has received 2 doses to date. Hemoglobin is drifted down to 7.4 and he will receive 1 unit packed red blood cells today, November 05. Serial labs ordered. (4) Iron deficiency: Plan: Parenteral iron replacement daily for 3 days. Oral iron replacement daily going forward (5) Chronic kidney disease, stage III (moderate): Plan: Stable. Monitor intake and output. Serial labs Plan Hopeful discharge to [facility] tomorrow, November 05 Admission and Anticipated Discharge Date Admission Date: November 01, 2024 Subjective Alert and oriented. Clinically he is a little fluid overloaded and a dose of parenteral Lasix has been ordered. Hemoglobin is drifted down to 7.4 and a unit of blood has also been ordered. He has been accepted to [facility] and hopefully can go there tomorrow, November 05 Review of Systems 2 Review of Systems: Constitutionalno fever or chills ENTno blurred vision, no double vision, no epistaxis, no sore throat Respiratoryno cough, no wheezing, no shortness of breath Cardiacno palpitations, no chest pain, no syncope Edward nausea, vomiting, diarrhea, melena, hematochezia GUno urinary retention, no urinary incontinence, no dysuria, no hematuria Musculoskeletaldiscomfort at right leg surgical site. No muscle tenderness Skinno bruising, no rashes, no pruritus Neurono isolated weakness, no paresthesia, no weakness Psychno depression, no anxiety Physical Exam 2 Physical Exam: General-mildly lethargic postoperatively. No fever HEENT-head atraumatic and normocephalic, pupils equal and reactive to light, extraocular muscles intact Neck-no lymphadenopathy or thyromegaly, trachea midline Chest-faint inspiratory bilateral rales. No wheezing. No rhonchi. Cardiac-regular rate and rhythm, normal S1 and S2 Abdomen-normal bowel sounds, no hepatosplenomegaly Extremities-right hip surgical site is bandaged with no evidence of bleeding on the bandage Neuro- cranial nerves II through XII intact, motor and sensory function within normal limits, strength symmetrical, no focal deficits Psych-normal affect, normal mood Results & Data Results & Data Vital Signs (Past 12 Hours) Vital Signs Temp Pulse Pulse Pulse Resp BP BP 11/04/24 15:16 36.5 C 91 H 16 91/62 L 11/04/24 14:16 36.6 C 18 97/64 L 11/04/24 13:46 38.1 C H 113 H 16 103/56 L 11/04/24 13:31 36.8 C 101 H 16 100/65 11/04/24 13:12 38.0 C H 91 H 16 88/52 L 11/04/24 10:55 11/04/24 10:00 36.8 C 95 H 18 11/04/24 07:32 36.3 C L 99 H 18 99/66 L 11/04/24 06:12 95 H BP Pulse Ox O2 Del Method O2 Flow Rate 11/04/24 15:16 98 1 11/04/24 14:16 92 11/04/24 13:46 96 11/04/24 13:31 93 11/04/24 13:12 97 1 11/04/24 10:55 Nasal Cannula 1 11/04/24 10:00 90/57 L 97 Nasal Cannula 1 11/04/24 07:32 97 Nasal Cannula 2 11/04/24 06:12 Laboratory Results 11/04/24 06:13 11/04/24 06:13 PG Care Time/CCT Total # of Minutes Spent Total Time Spent with Patient: Total time spent is greater than 50% in coordination of care (as documented) at patient's floor/unit and/or counseling patient: Coding Level of Care Code 55824 SUB INP/OBS CARE 3/50MIN Diagnoses Right femoral fracture S72.91XA Atrial fibrillation I48.91 Anemia D64.9 Iron deficiency E61.1 Chronic kidney disease, stage III (moderate) N18.30
[2024-11-04] MEDS: POLYETHYLENE (MIRALAX) 17 GM PACK PO SCH (17:24)
[2024-11-04 17:29] LABS: Hematocrit (blood only) 30.4 % (42.0-52.0); Hemoglobin 9.5 g/dl (14.0-18.0)
[2024-11-05] MEDS: ACETAMINOPHEN 325 MG TAB PO PRN (03:09)
[2024-11-05 07:30] LABS: Basophils # (auto) 0.04 K/uL (0.00-0.20); Basophils % (auto) 0.4 %; Hematocrit (blood only) 27.3 % (42.0-52.0); Hemoglobin 8.7 g/dl (14.0-18.0); Immature Granulocytes # (auto) 0.11 K/uL (0.01-0.20); Immature Granulocytes % (auto) 1.1 %; Lymphocytes # (auto) 1.37 K/uL (1.20-3.40); Lymphocytes % (auto) 13.1 %; Mean Corpuscular Hemoglobin 26.7 pg (25.0-34.0); Mean Corpuscular Hgb Conc 31.9 g/dL (32.0-36.0); Mean Corpuscular Volume 83.7 fL (80.0-100.0); Mean Platelet Volume 9.8 fL (9.4-12.4); Monocytes % (auto) 16.2 %; Neutrophils # (auto) 7.15 K/uL (1.40-6.50); Neutrophils % (auto) 68.2 %; Nucleated RBC # (auto) 0.02 K/uL (0.00-0.12); Nucleated RBC % (auto) 0.2 %; Platelet Count 302 K/uL (130-400); RDW Coefficient of Variation 14.8 % (11.5-14.5); RDW Standard Deviation 44.6 fL (36.4-46.3); Red Blood Count 3.26 M/uL (4.70-6.10); White Blood Count 10.47 K/ul (4.8-10.8)
[2024-11-05 07:47] LABS: BUN Creatinine Ratio 20.5 (10-20); Calcium 8.2 mg/dl (8.6-10.3); Creatinine Clr Calc Pharmacy 45.7 ml/min; Potassium 4.1 mmol/L (3.5-5.1)
--- NOTE | 2024-11-05 11:13 | Orthopedic Progress Note ---
Date of Service November 05, 2024 Assessment & Plan (1) S/P ORIF (open reduction internal fixation) fracture: POD 3 from right TFN. Pain controlled. d/c planning: he believes he is going to rehab in [place] dressing change today dvt prophylaxis: teds, scd's, xarelto follow up with orthopedics 2-3 weeks PT/OT wbat Subjective . 79 year old patient POD 3 from right TFN for hip fx. Pain reasonably controlled. Has been out of bed and walked some. Has some pain with weight bearing. Review of Systems All systems reviewed & are unremarkable except as noted in HPI & below. Physical Exam .alert and oriented. NAD Right leg: dressing clean, dry, intact. Mild swelling to the leg. Able to dorsiflex, plantarflex. nvi. Results & Data Results & Data Laboratory Results . Diagnostic Findings . PG Care Time/CCT Total # of Minutes Spent Total Time Spent with Patient: Total time spent is greater than 50% in coordination of care (as documented) at patient's floor/unit and/or counseling patient: Coding Level of Care Code 75520 Post Operative Follow-Up Diagnoses S/P ORIF (open reduction internal fixation) fracture Z98.890; Z87.81
[2024-11-05] MEDS: IRON SUCROSE 300 MG in SODIUM CHLORIDE 0.9% 250 ML IV ONE (11:46)
[2024-11-05 13:16] LABS: Hematocrit (blood only) 27.6 % (42.0-52.0); Hemoglobin 8.9 g/dl (14.0-18.0)
[2024-11-05] MEDS: RIVAROXABAN 15 MG TAB PO SCH ×2 (14:59→16:59)
--- NOTE | 2024-11-05 14:59 | Hospitalist Progress Note ---
Date of Service November 05, 2024 Assessment & Plan (1) Right femoral fracture: Plan: Orthopedic consultation and recommendations appreciated. He underwent open reduction internal fixation with right femur nailing on November 02. Postoperative day #3. Xarelto was restarted today, November 05 (2) Atrial fibrillation: Plan: Chronic. Rate is currently controlled. Xarelto has been restarted. Telemetry (3) Anemia: Plan: Combined acute blood loss anemia and iron deficiency. He received his third dose of parenteral Venofer today, November 06. Oral iron replacement going forward. Hemoglobin improved to 9.5 after 1 unit packed red blood cells given yesterday, November 04. Hemoglobin now down slightly to 8.9 but appears to be stable. Will follow. (4) Iron deficiency: Plan: He has now received parenteral iron replacement daily for 3 doses. Oral iron replacement daily going forward (5) Chronic kidney disease, stage III (moderate): Plan: Stable. Monitor intake and output. Serial labs Plan Probable discharge to [facility] tomorrowNovember 06 Admission and Anticipated Discharge Date Admission Date: November 01, 2024 Subjective Alert and oriented. Hemoglobin improved to 9.5 after 1 unit of blood yesterday then dropped to 8.7. Repeat hemoglobin is 8.9. Xarelto has been restarted. He received his third dose of parenteral iron today, November 05. [facility] insurance approval has arrived. He probably will be discharged there tomorrow, November 06 Review of Systems 2 Review of Systems: Constitutionalno fever or chills ENTno blurred vision, no double vision, no epistaxis, no sore throat Respiratoryno cough, no wheezing, no shortness of breath Cardiacno palpitations, no chest pain, no syncope Edward nausea, vomiting, diarrhea, melena, hematochezia GUno urinary retention, no urinary incontinence, no dysuria, no hematuria Musculoskeletaldiscomfort at right leg surgical site. No muscle tenderness Skinno bruising, no rashes, no pruritus Neurono isolated weakness, no paresthesia, no weakness Psychno depression, no anxiety Physical Exam 2 Physical Exam: General-mildly lethargic postoperatively. No fever HEENT-head atraumatic and normocephalic, pupils equal and reactive to light, extraocular muscles intact Neck-no lymphadenopathy or thyromegaly, trachea midline Chest-faint inspiratory bilateral rales. No wheezing. No rhonchi. Cardiac-regular rate and rhythm, normal S1 and S2 Abdomen-normal bowel sounds, no hepatosplenomegaly Extremities-right hip surgical site is bandaged with no evidence of bleeding on the bandage Neuro- cranial nerves II through XII intact, motor and sensory function within normal limits, strength symmetrical, no focal deficits Psych-normal affect, normal mood Results & Data Results & Data Vital Signs (Past 12 Hours) Vital Signs Temp Pulse Pulse Resp BP BP Pulse Ox 11/05/24 12:34 97 11/05/24 11:51 36.6 C 93 H 18 93/63 L 93 11/05/24 10:35 11/05/24 08:12 36.8 C 105 H 22 127/85 95 11/05/24 05:56 36.9 C 119/79 11/05/24 05:45 106 H 11/05/24 03:05 37.8 C H 85 18 92/64 L 98 O2 Del Method 11/05/24 12:34 11/05/24 11:51 Room Air 11/05/24 10:35 Room Air 11/05/24 08:12 Room Air 11/05/24 05:56 11/05/24 05:45 11/05/24 03:05 Room Air Laboratory Results 11/05/24 12:49 11/05/24 06:31 PG Care Time/CCT Total # of Minutes Spent Total Time Spent with Patient: Total time spent is greater than 50% in coordination of care (as documented) at patient's floor/unit and/or counseling patient: Coding Level of Care Code 42746 SUB INP/OBS CARE 3/50MIN Diagnoses Right femoral fracture S72.91XA Atrial fibrillation I48.91 Anemia D64.9 Iron deficiency E61.1 Chronic kidney disease, stage III (moderate) N18.30
[2024-11-05] MEDS: DOCUSATE SODIUM 100 MG CAP PO SCH (20:13)
[2024-11-06 07:22] LABS: Basophils # (auto) 0.04 K/uL (0.00-0.20); Basophils % (auto) 0.4 %; Eosinophils % (auto) 1.9 %; Hematocrit (blood only) 28.6 % (42.0-52.0); Hemoglobin 8.9 g/dl (14.0-18.0); Immature Granulocytes # (auto) 0.16 K/uL (0.01-0.20); Immature Granulocytes % (auto) 1.5 %; Lymphocytes # (auto) 1.18 K/uL (1.20-3.40); Lymphocytes % (auto) 11.2 %; Mean Corpuscular Hemoglobin 26.6 pg (25.0-34.0); Mean Corpuscular Hgb Conc 31.1 g/dL (32.0-36.0); Mean Corpuscular Volume 85.6 fL (80.0-100.0); Monocytes # (auto) 1.66 K/uL (0.11-0.59); Monocytes % (auto) 15.8 %; Neutrophils # (auto) 7.27 K/uL (1.40-6.50); Neutrophils % (auto) 69.2 %; Nucleated RBC # (auto) 0.03 K/uL (0.00-0.12); Nucleated RBC % (auto) 0.3 %; Platelet Count 348 K/uL (130-400); RDW Coefficient of Variation 15.2 % (11.5-14.5); RDW Standard Deviation 45.8 fL (36.4-46.3); Red Blood Count 3.34 M/uL (4.70-6.10); White Blood Count 10.51 K/ul (4.8-10.8)
--- NOTE | 2024-11-06 07:30 | Orthopedic Progress Note ---
Date of Service November 06, 2024 Assessment & Plan (1) S/P ORIF (open reduction internal fixation) fracture: Plan: 79-year-old gentleman with multiple medical comorbidities now 4 days out from IM nailing of right inner troches/subtalar fracture. He appears medically stable. Hemoglobin hematocrit are stable. He is back on his Xarelto. Plan: 1. DVT prophylaxis including Thiede teds, SCDs, and back on his Xarelto. 2. PT/OT. Can fully weight-bear as tolerated in this right leg. 3. Pain control. Doing okay with current pain regimen. 4. Medical management. The provided by the medical service. 5. Disposition. He is orthopedically okay for discharge anytime medically stable. He can weight-bear as tolerated. Routine wound care with dry dressing daily. Return to clinic 2 to 3 weeks out from injury date. (2) Chronic kidney disease, stage III (moderate): (3) Atrial fibrillation: Admission and Anticipated Discharge Date Admission Date: November 01, 2024 Subjective 79-year-old gentleman now postop day 4 from IM nailing of right inner troches/subtalar fracture. He is doing pretty well this morning. Really no pain at all while lying in bed. Said is uncomfortable when he moves around. No chest pain or shortness of breath. Just wait for bed placement I believe in [facility]. Physical Exam Physical Exam: Physical examination was a pleasant elderly male. I had to wake him this morning. Examination of the right leg reveals the leg to be well aligned. Dressings clean dry and intact he can dorsiflex and plantarflex his foot appropriately. He is neurologically intact. Results & Data Vital Signs (Past 12 Hours) Vital Signs Temp Pulse Pulse Resp BP Pulse Ox O2 Del Method 11/06/24 07:05 36.5 C 95 H 18 113/74 97 Room Air 11/06/24 03:01 36.8 C 90 18 106/70 95 Room Air 11/05/24 22:58 36.5 C 93 H 20 117/71 96 Room Air 11/05/24 21:59 92 H Laboratory Results Hemoglobin stable at 8.9 and hematocrit 28.6. Electrolytes are pending
[2024-11-06 07:37] LABS: BUN Creatinine Ratio 19.2 (10-20); Calcium 8.3 mg/dl (8.6-10.3); Creatinine Clr Calc Pharmacy 57.2 ml/min; Potassium 4.7 mmol/L (3.5-5.1)
[2024-11-06] MEDS: FERROUS SULFATE 325 MG TAB PO SCH (09:30)
--- NOTE | 2024-11-06 11:50 | Discharge Summary ---
Discharge Summary Date of Service November 06, 2024 Principal Dx & Hospital Course #1 = Principal Diagnosis (1) Right femoral fracture: Orthopedic consultation and recommendations appreciated. He underwent open reduction internal fixation with right femur nailing on November 02. Postoperative day #4. Xarelto has been restarted (2) Atrial fibrillation: Chronic. Rate is currently controlled. Xarelto has been restarted. Telemetry (3) Anemia: Combined acute blood loss anemia and iron deficiency. He received 3 doses of parenteral iron replacement. Oral iron replacement going forward. He received 1 unit packed red blood cells. Hemoglobin is now stable. Xarelto has been restarted. (4) Iron deficiency: He has now received parenteral iron replacement daily for 3 doses. Oral iron replacement bid going forward (5) Chronic kidney disease, stage III (moderate): Stable. Monitor intake and output. Serial labs Plan Discharge to [facility] today, November 06 Admission HPI Per Admitting Provider Jair is a pleasant 79-year-old gentleman with PMH of bladder cancer, CKD stage III, BPH, HTN, hypercholesteremia, arthritis, and nephrolithiasis. Patient presented via EMS on 11/01 after slipping on snow at home while taking out the garbage. Patient reports that his driveway steep, and he was taking out the garbage this morning, when he slipped and his legs went out from under him. He believes he did hit his head, and landed on his right side. Patient takes Xarelto at suppertime for his atrial fibrillation, and took it last night. He also reports that he took his regular morning medicine today. He rates his right hip/thigh pain as an 8/10 at present, and a 10/10 at worst. The pain is constant, and radiates down to his knee, but no further. He did not take any pain medicine prior to coming into the hospital. No LOC after slipping. No dizziness, lightheadedness, or presyncopal symptoms prior to fall. He was unable to bear weight after the fall, and reports that movement of the right lo wer extremity exacerbates his pain. Patient does have history of bilateral knee replacements and shoulder placements. He reports he did eat breakfast this morning (apple juice) around 7:30 AM. He denies PMH of stroke, TN, CHF, or T2DM. Patient denies smoking, tobacco use, or recent alcohol use. He does not use up on oxygen at baseline or CPAP at night. No PMH of DVT/PE. Patient's SpO2 is 99% on 2L NC; vitals otherwise stable at time of admission. ED course: Dilaudid 0.5 mg IV x 2 Acetaminophen 1000 mg IV ROS: Patient endorses severe right hip/thigh pain and chronic dry cough. Patient denies fever, dizziness/lightheadedness prior to fall, chest pain, chest palpitations, SOB, pleuritic CP, abdominal pain, N/V/D, changes in urinary or bowel habits, or numbness or tingling going down the right leg. Discharge Exam General-mildly lethargic postoperatively. No fever HEENT-head atraumatic and normocephalic, pupils equal and reactive to light, extraocular muscles intact Neck-no lymphadenopathy or thyromegaly, trachea midline Chest-faint inspiratory bilateral rales. No wheezing. No rhonchi. Cardiac-regular rate and rhythm, normal S1 and S2 Abdomen-normal bowel sounds, no hepatosplenomegaly Extremities-right hip surgical site is bandaged with no evidence of bleeding on the bandage Neuro- cranial nerves II through XII intact, motor and sensory function within normal limits, strength symmetrical, no focal deficits Psych-normal affect, normal mood Discharge Plan Discharge Items Patient Disposition: Transfer Long Term Fac Reason For Visit: ACUTE FEMUR FX Discharge Diagnosis: IM Nailing of Right Hip Fracture, iron deficiency anemia, acute blood loss anemia, transient postoperative hypoxia due to atelectasis Activity: Per Instructions section Weightbearing: Full weightbearing Non-emergency contact: Primary Care Provider and Surgeon Call non-emergency contact if: you have any medication questions and your symptoms worsen Follow-up/Referrals: Kvng Shook MD [Physician] - (Orthopedic follow-up 2-3 weeks from surgery date.) Jimmy Paul MD [Primary Care Provider] - Diet: Regular and Heart Healthy Addtl Attending Provider Instructions: May fully weightbear as tolerated on right leg Routine wound care with dry dressing to incision sites and change daily. May remove dressing and shower. Pending Studies at Discharge: No Stand-Alone Forms: [facility] [employer] Skilled Items Patient informed of condition?: Yes DNR: Yes Discharge Level of Care: Skilled Communicable Disease: No Discharge Prognosis: Stable Lines: None Urinary Catheter: No Medications and DC Order Prescriptions: New docusate sodium 100 mg Capsule 100 mg PO BID Qty: 0 0RF ferrous sulfate 325 mg (65 mg iron) Tablet,Delayed Release (Dr/Ec) 325 mg PO BIDM Qty: 0 0RF Continued tamsulosin 0.4 mg capsule 0.4 mg PO DAILY finasteride 5 mg tablet 5 mg PO DAILY Qty: 90 1RF fluticasone propion-salmeterol [Advair Diskus] 250-50 mcg/dose Blister With Device 1 inh INHALATION BID colesevelam [WelChol] 3.75 gram Powder In Packet 3.75 g PO QAM Xarelto 15 mg PO DAILY amiodarone 200 mg PO .3X WEEK Rx Instructions: mon,wed,fri atorvastatin 40 mg PO DAILY metoprolol tartrate 25 mg PO BID Rx Instructions: / tab furosemide 40 mg Tablet 40 mg PO DAILY famotidine 40 mg Tablet 40 mg PO BID Discharge Orders: Discharge Order (Routine); Ordered 11/06/24 Ordered By: Nahun Mireles Admission Data Admit Date/Time: 11/01/24 14:11 Attending Provider: Nahun Mireles Admit Provider: Feliciano uRiz Primary Care Provider: Jimmy Paul Other Providers: Feliciano Ruiz; Cassius Bernstein Hospital Stay Data Consultations 11/01/24 12:46 Consult Orthopedic Surgery Routine ED Decision to Admit Stat Procedures Performed Operation Date: 11/02/24 07:00 Actual Procedures p Right Trochanteric Femoral Nail(Right) - Kvng Shook MD Diagnostic Imagining Performed 11/01/24 10:13 CT cervical spine wo con Stat CT head/brain wo con Stat 11/02/24 FL hip RT 2-3V Routine Pending Results Patient Have Any Pending Studies at Discharge: No Discharge Instructions Given to Patient (Per Discharging Provider) May fully weightbear as tolerated on right leg Routine wound care with dry dressing to incision sites and change daily. May remove dressing and shower. Total Time Total Time Spent Total Time Spent (In Minutes): 50-minute Coding Level of Care Code 35871 INP/OBS DISCH >30 MIN Diagnoses Right femoral fracture S72.91XA Atrial fibrillation I48.91 Anemia D64.9 Iron deficiency E61.1 Chronic kidney disease, stage III (moderate) N18.30
[2024-11-07 07:44] LABS: Basophils # (auto) 0.04 K/uL (0.00-0.20); Basophils % (auto) 0.4 %; Eosinophils # (auto) 0.24 K/uL (0.00-0.50); Eosinophils % (auto) 2.3 %; Hemoglobin 9.1 g/dl (14.0-18.0); Immature Granulocytes # (auto) 0.17 K/uL (0.01-0.20); Immature Granulocytes % (auto) 1.6 %; Lymphocytes # (auto) 1.48 K/uL (1.20-3.40); Lymphocytes % (auto) 13.9 %; Mean Corpuscular Hemoglobin 26.5 pg (25.0-34.0); Mean Corpuscular Hgb Conc 31.4 g/dL (32.0-36.0); Mean Corpuscular Volume 84.3 fL (80.0-100.0); Mean Platelet Volume 9.6 fL (9.4-12.4); Monocytes # (auto) 1.65 K/uL (0.11-0.59); Monocytes % (auto) 15.6 %; Neutrophils # (auto) 7.03 K/uL (1.40-6.50); Neutrophils % (auto) 66.2 %; Platelet Count 368 K/uL (130-400); RDW Coefficient of Variation 16.7 % (11.5-14.5); RDW Standard Deviation 46.5 fL (36.4-46.3); Red Blood Count 3.44 M/uL (4.70-6.10); White Blood Count 10.61 K/ul (4.8-10.8)
[2024-11-07 08:01] LABS: Calcium 8.3 mg/dl (8.6-10.3); Creatinine Clr Calc Pharmacy 57.7 ml/min; Potassium 4.4 mmol/L (3.5-5.1)
--- NOTE | 2024-11-07 14:16 | Hospitalist Progress Note ---
Date of Service November 07, 2024 Assessment & Plan (1) Right femoral fracture: Plan: Orthopedic consultation and recommendations appreciated. He underwent open reduction internal fixation with right femur nailing on November 02. Postoperative day #5. Xarelto has been restarted. Hemoglobin remained stable (2) Atrial fibrillation: Plan: Chronic. Rate is currently controlled. Xarelto has been restarted. Telemetry (3) Anemia: Plan: Combined acute blood loss anemia and iron deficiency. He received 3 doses of parenteral iron replacement. Oral iron replacement going forward. He received 1 unit packed red blood cells. Hemoglobin is now stable. Xarelto has been restarted. (4) Iron deficiency: Plan: He has now received parenteral iron replacement daily for 3 doses. Oral iron replacement bid going forward (5) Chronic kidney disease, stage III (moderate): Plan: Stable. Monitor intake and output. Serial labs Plan Discharge to swing bed or SNF when arrangements are finalized. Apparently a [facility] is no longer available. Admission and Anticipated Discharge Date Admission Date: November 01, 2024 Subjective Unfortunately, the patient could not be discharged to [facility] yesterday due to inclement weather and now there is no bed available. Anticipated discharge has been canceled. Hemoglobin is stable at 9.1 after restarting Xarelto. He received 3 doses of parenteral iron and is now on oral iron replacement. Review of Systems 2 Review of Systems: Constitutionalno fever or chills ENTno blurred vision, no double vision, no epistaxis, no sore throat Respiratoryno cough, no wheezing, no shortness of breath Cardiacno palpitations, no chest pain, no syncope Edward nausea, vomiting, diarrhea, melena, hematochezia GUno urinary retention, no urinary incontinence, no dysuria, no hematuria Musculoskeletaldiscomfort at right leg surgical site. No muscle tenderness Skinno bruising, no rashes, no pruritus Neurono isolated weakness, no paresthesia, no weakness Psychno depression, no anxiety Physical Exam 2 Physical Exam: General-mildly lethargic postoperatively. No fever HEENT-head atraumatic and normocephalic, pupils equal and reactive to light, extraocular muscles intact Neck-no lymphadenopathy or thyromegaly, trachea midline Chest-faint inspiratory bilateral rales. No wheezing. No rhonchi. Cardiac-regular rate and rhythm, normal S1 and S2 Abdomen-normal bowel sounds, no hepatosplenomegaly Extremities-right hip surgical site is bandaged with no evidence of bleeding on the bandage Neuro- cranial nerves II through XII intact, motor and sensory function within normal limits, strength symmetrical, no focal deficits Psych-normal affect, normal mood Results & Data Results & Data Vital Signs (Past 12 Hours) Vital Signs Temp Pulse Pulse Resp BP Pulse Ox O2 Del Method 11/07/24 11:01 36.7 C 97 H 9 L 100/67 98 Room Air 11/07/24 07:27 36.6 C 84 19 130/91 96 Room Air 11/07/24 05:46 101 H 11/07/24 03:04 36.7 C 97 H 18 130/84 94 Room Air Laboratory Results 11/07/24 07:01 11/07/24 07:01 PG Care Time/CCT Total # of Minutes Spent Total Time Spent with Patient: Total time spent is greater than 50% in coordination of care (as documented) at patient's floor/unit and/or counseling patient: Coding Level of Care Code 39596 SUB INP/OBS CARE 2/35MIN Diagnoses Right femoral fracture S72.91XA Atrial fibrillation I48.91 Anemia D64.9 Iron deficiency E61.1 Chronic kidney disease, stage III (moderate) N18.30
[2024-11-08 07:07] LABS: Basophils # (auto) 0.05 K/uL (0.00-0.20); Basophils % (auto) 0.5 %; Eosinophils # (auto) 0.32 K/uL (0.00-0.50); Hematocrit (blood only) 31.2 % (42.0-52.0); Hemoglobin 9.7 g/dl (14.0-18.0); Immature Granulocytes # (auto) 0.25 K/uL (0.01-0.20); Immature Granulocytes % (auto) 2.3 %; Lymphocytes # (auto) 1.44 K/uL (1.20-3.40); Lymphocytes % (auto) 13.3 %; Mean Corpuscular Hemoglobin 26.8 pg (25.0-34.0); Mean Corpuscular Hgb Conc 31.1 g/dL (32.0-36.0); Mean Corpuscular Volume 86.2 fL (80.0-100.0); Mean Platelet Volume 9.9 fL (9.4-12.4); Monocytes # (auto) 1.57 K/uL (0.11-0.59); Monocytes % (auto) 14.5 %; Neutrophils # (auto) 7.18 K/uL (1.40-6.50); Neutrophils % (auto) 66.4 %; Platelet Count 398 K/uL (130-400); RDW Coefficient of Variation 17.3 % (11.5-14.5); RDW Standard Deviation 48.7 fL (36.4-46.3); Red Blood Count 3.62 M/uL (4.70-6.10); White Blood Count 10.81 K/ul (4.8-10.8)
[2024-11-08 07:38] LABS: BUN Creatinine Ratio 17.8 (10-20); Calcium 8.3 mg/dl (8.6-10.3); Creatinine Clr Calc Pharmacy 56.3 ml/min; Potassium 4.4 mmol/L (3.5-5.1)
--- NOTE | 2024-11-08 09:15 | Discharge Summary ---
Discharge Summary Date of Service November 08, 2024 Principal Dx & Hospital Course #1 = Principal Diagnosis (1) Right femoral fracture: Orthopedic consultation and recommendations appreciated. He underwent open reduction internal fixation with right femur nailing on November 02. Postoperative day #6. Xarelto has been restarted. Hemoglobin remained stable (2) Atrial fibrillation: Chronic. Ventricular response rate is a little high. Metoprolol has been uptitrated today, November 08. Xarelto has been restarted. Telemetry while hospitalized (3) Anemia: Combined acute blood loss anemia and iron deficiency. He received 3 doses of parenteral iron replacement. Oral iron replacement going forward. He received 1 unit packed red blood cells. Hemoglobin is now stable. Xarelto has been restarted. (4) Iron deficiency: He has now received parenteral iron replacement daily for 3 doses. Oral iron replacement bid going forward (5) Chronic kidney disease, stage III (moderate): Stable. Monitor intake and output. Serial labs Plan Discharge to [facility] today, November 08 Admission HPI Per Admitting Provider Jair is a pleasant 79-year-old gentleman with PMH of bladder cancer, CKD stage III, BPH, HTN, hypercholesteremia, arthritis, and nephrolithiasis. Patient presented via EMS on 11/01 after slipping on snow at home while taking out the garbage. Patient reports that his driveway steep, and he was taking out the garbage this morning, when he slipped and his legs went out from under him. He believes he did hit his head, and landed on his right side. Patient takes Xarelto at suppertime for his atrial fibrillation, and took it last night. He also reports that he took his regular morning medicine today. He rates his right hip/thigh pain as an 8/10 at present, and a 10/10 at worst. The pain is constant, and radiates down to his knee, but no further. He did not take any pain medicine prior to coming into the hospital. No LOC after slipping. No dizziness, lightheadedness, or presyncopal symptoms prior to fall. He was unable to bear weight after the fall, and reports that movement of the right lower extremity exacerbates his pain. Patient does have history of bilateral knee replacements and shoulder placements. He reports he did eat breakfast this morning (apple juice) around 7:30 AM. He denies PMH of stroke, PA, CHF, or T2DM. Patient denies smoking, tobacco use, or recent alcohol use. He does not use up on oxygen at baseline or CPAP at night. No PMH of DVT/PE. Patient's SpO2 is 99% on 2L NC; vitals otherwise stable at time of admission. ED course: Dilaudid 0.5 mg IV x 2 Acetaminophen 1000 mg IV ROS: Patient endorses severe right hip/thigh pain and chronic dry cough. Patient denies fever, dizziness/lightheadedness prior to fall, chest pain, chest palpitations, SOB, pleuritic CP, abdominal pain, N/V/D, changes in urinary or bowel habits, or numbness or tingling going down the right leg. Discharge Exam General-mildly lethargic postoperatively. No fever HEENT-head atraumatic and normocephalic, pupils equal and reactive to light, extraocular muscles intact Neck-no lymphadenopathy or thyromegaly, trachea midline Chest-faint inspiratory bilateral rales. No wheezing. No rhonchi. Cardiac-regular rate and rhythm, normal S1 and S2 Abdomen-normal bowel sounds, no hepatosplenomegaly Extremities-right hip surgical site is bandaged with no evidence of bleeding on the bandage Neuro- cranial nerves II through XII intact, motor and sensory function within normal limits, strength symmetrical, no focal deficits Psych-normal affect, normal mood Discharge Plan Discharge Items Patient Disposition: Transfer [facility] Reason For Visit: ACUTE FEMUR FX Discharge Diagnosis: IM Nailing of Right Hip Fracture, iron deficiency anemia, acute blood loss anemia, transient postoperative hypoxia due to atelectasis Activity: Per Instructions section Weightbearing: Full weightbearing Non-emergency contact: Primary Care Provider and Surgeon Call non-emergency contact if: you have any medication questions and your symptoms worsen Follow-up/Referrals: Kvng Shook MD [Physician] - (Orthopedic follow-up 2-3 weeks from surgery date.) Jimmy Paul MD [Primary Care Provider] - (Patient stated he will call to schedule hospital d/c with PCP) Diet: Regular and Heart Healthy Addtl Attending Provider Instructions: May fully weightbear as tolerated on right leg Routine wound care with dry dressing to incision sites and change daily. May remove dressing and shower. Pending Studies at Discharge: No Stand-Alone Forms: [facility] [place] Skilled Items Patient informed of condition?: Yes DNR: Yes Discharge Level of Care: Skilled Communicable Disease: No Discharge Prognosis: Stable Lines: None Urinary Catheter: No Medications and DC Order Prescriptions: New ferrous sulfate 325 mg (65 mg iron) Tablet,Delayed Release (Dr/Ec) 325 mg PO BIDM Qty: 0 0RF docusate sodium 100 mg Capsule 100 mg PO BID Qty: 0 0RF metoprolol tartrate 50 mg Tablet 50 mg PO BID Qty: 60 0RF Continued tamsulosin 0.4 mg capsule 0.4 mg PO DAILY finasteride 5 mg tablet 5 mg PO DAILY Qty: 90 1RF fluticasone propion-salmeterol [Advair Diskus] 250-50 mcg/dose Blister With Device 1 inh INHALATION BID colesevelam [WelChol] 3.75 gram Powder In Packet 3.75 g PO QAM Xarelto 15 mg PO DAILY amiodarone 200 mg PO .3X WEEK Rx Instructions: mon,wed,fri atorvastatin 40 mg PO DAILY furosemide 40 mg Tablet 40 mg PO DAILY famotidine 40 mg Tablet 40 mg PO BID Discontinued metoprolol tartrate 25 mg PO BID Rx Instructions: 1/2 tab Discharge Orders: Discharge Order (Routine); Ordered 11/08/24 Ordered By: Nahun Mireles Admission Data Admit Date/Time: 11/01/24 14:11 Attending Provider: Nahun Mireles Admit Provider: Feliciano Ruiz Primary Care Provider: Jimmy Paul Other Providers: Feliciano Ruiz; Cassius Bernstein Other Interventions: Discharge Summary Assessment (RN) Last Done: 11/06/24 12:47 Hospital Stay Data Consultations 11/01/24 12:46 Consult Orthopedic Surgery Routine ED Decision to Admit Stat Procedures Performed Operation Date: 11/02/24 07:00 Actual Procedures p Right Trochanteric Femoral Nail(Right) - Kvng Shook MD Diagnostic Imagining Performed 11/01/24 10:13 CT cervical spine wo con Stat CT head/brain wo con Stat 11/02/24 FL hip RT 2-3V Routine Pending Results Patient Have Any Pending Studies at Discharge: No Discharge Instructions Given to Patient (Per Discharging Provider) May fully weightbear as tolerated on right leg Routine wound care with dry dressing to incision sites and change daily. May remove dressing and shower. Total Time Total Time Spent Total Time Spent (In Minutes): 50 minutes Coding Level of Care Code 50253 INP/OBS DISCH >30 MIN Diagnoses Right femoral fracture S72.91XA Atrial fibrillation I48.91 Anemia D64.9 Iron deficiency E61.1 Chronic kidney disease, stage III (moderate) N18.30
[2024-11-08] MEDS: METOPROLOL TARTRATE 25 MG TAB PO STA (09:39)
[2024-11-08] MEDS ORDERED: METOPROLOL TARTRATE 50 MG TAB PO SCH (21:00)
== END 2024-11-08 10:40 | DRG 481 ==
LOC: ED 10:05 → SUATTDRO 14:11 → EDINP 14:11 → 2S 16:42